=== PATIENT | male | born 1965 | race Caucasian/White ===

== ENCOUNTER 2016-05-20 18:47 | Emergency (ER) | payer OTHER ==
[2016-05-20 18:52] VITALS: RESP 18
[2016-05-20 18:56] LABS: Glucose,Whole Blood 195 mg/dL (75-99)
[2016-05-20] MEDS ORDERED: SODIUM CHLORIDE 0.9% 500 ML IV STA (18:56)
[2016-05-20] MEDS ORDERED: SODIUM CHLORIDE 0.9% 1,000 ML IV STA ×3 (18:56)
--- NOTE | 2016-05-20 18:56 | ED ---
General Adult HPI - General Chief complaint: Syncope Stated complaint: STEMI Time Seen by Provider: 05/20/16 18:50 Source: EMS, RN notes reviewed, old records reviewed Mode of arrival: EMS Limitations: no limitations - History of Present Illness Initial comments: This is a 51-year-old male the ER for evaluation of syncopal event. Patient states he did have single event today at work, it is not erythematous likable sludges, felt lightheaded dizzy and then passed out. Patient states he does feel diaphoretic and weak at this time but no chest pain no shortness of breath no abdominal pain no headaches. Patient does admit to drinking a few beers last night but nothing specific, no drug abuse. Patient denies any vomiting or diarrhea lately, no blood in stool eating appropriately. Patient states she does have history of aneurysm also admits to being under a lot of increased stress. Again patient denies any chest pain no shortness of breath no abdominal pain, does feel like he needs to go to the bathroom - Related Data Home Medications Medication Instructions Recorded Confirmed Aspirin EC [Ecotrin Low Dose] 81 mg PO DAILY 05/20/16 05/20/16 Allergies Allergy/AdvReac Type Severity Reaction Status Date / Time No Known Allergies Allergy Verified 05/20/16 19:08 Review of Systems ROS Statement: Those systems with pertinent positive or pertinent negative responses have been documented in the HPI. ROS Other: All systems not noted in ROS Statement are negative. 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 Absent: scleral icterus, conjunctival injection, periorbital swelling ENT exam: Present: normal exam, mucous membranes moist Neck exam: Present: normal inspection. Absent: tenderness, meningismus, lymphadenopathy Respiratory exam: Present: normal lung sounds bilaterally. Absent: respiratory distress, wheezes, rales, rhonchi, stridor Cardiovascular Exam: Present: normal rhythm, tachycardia, normal heart sounds. Absent: systolic murmur, diastolic murmur, rubs, gallop, clicks GI/Abdominal exam: Present: soft, normal bowel sounds. Absent: distended, tenderness, guarding, rebound, rigid Extremities exam: Present: normal inspection, full ROM, normal capillary refill. Absent: tenderness, pedal edema, joint swelling, calf tenderness Back exam: Present: normal inspection Neurological exam: Present: alert, oriented X3, CN II-XII intact Psychiatric exam: Present: normal affect, normal mood Skin exam: Present: warm, dry, intact, normal color. Absent: rash Course Vital Signs 05/20/16 05/20/16 05/20/16 18:50 18:52 18:57 Temperature 98.0 F Pulse Rate 103 H 104 H Respiratory 18 18 Rate Blood Pressure 78/50 83/54 92/63 O2 Sat by Pulse 97 97 Oximetry 05/20/16 05/20/16 05/20/16 19:09 19:11 19:28 Temperature Pulse Rate 103 H 102 H 86 Respiratory 18 18 18 Rate Blood Pressure 101/64 100/66 117/67 O2 Sat by Pulse 98 97 97 Oximetry 05/20/16 20:26 Temperature Pulse Rate 78 Respiratory 18 Rate Blood Pressure 122/81 O2 Sat by Pulse 97 Oximetry - Reevaluation(s) Reevaluation #1: 05/20/16 20:40 Patient remains alert and oriented, blood pressure is improving. EKG Findings - EKG Comments: EKG Findings:: EKG shows normal sinus rhythm rate of 100, CT 146, currently, QTC 464, patient does have anterior PQ waves could be suspicious for hyperacute T waves, no evidence of ST elevation. EKG shows unusual axis rate of well 5, CT 152, QRS 80, QTC 502 Procedures - Central Line Placement Right IJ Consent Obtained: verbal consent Time Out Performed: Yes Patient Placed on Monitor/Pulse Ox: Yes MD Prep: mask, gown, gloves Central Line Prep: Chlorhexidine scrub Local Anesthesia Used: Lidocaine 1% Ultrasound Used for Placement: Yes Central Line Lumen Inserted: triple Bloods Obtained for Lab: Yes Central Line Position: good blood return, all ports aspirated, flushed, capped, sutured in place with 3-0 nylon Dressing Applied: Tegaderm Post Procedure X-Ray: tip of catheter in good position Patient Tolerated Procedure: well Complications: none Medical Decision Making - Medical Decision Making 51 male ER for evaluation, patient brought in today for evaluation of syncopal event, patient does have 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 He she' ll be started with pro transfusion. Patient will be transferred [facility] under the care of vascular surgery. - Lab Data Result diagrams: 05/20/16 18:50 05/20/16 18:50 Lab Results 05/20/16 05/20/16 05/20/16 Range/Units 18:50 18:50 18:50 WBC 8.5 (3.8-10.6) k/uL RBC 4.22 L (4.30-5.90) m/uL Hgb 13.4 (13.0-17.5) gm/dL Hct 39.3 (39.0-53.0) % MCV 93.1 (80.0-100.0) fL MCH 31.6 (25.0-35.0) pg MCHC 34.0 (31.0-37.0) g/dL RDW 12.6 (11.5-15.5) % Plt Count 202 (150-450) k/uL Neutrophils % 51 % Lymphocytes % 36 % Monocytes % 6 % Eosinophils % 3 % Basophils % 1 % Neutrophils # 4.3 (1.3-7.7) k/uL Lymphocytes # 3.1 (1.0-4.8) k/uL Monocytes # 0.5 (0-1.0) k/uL Eosinophils # 0.2 (0-0.7) k/uL Basophils # 0.1 (0-0.2) k/uL PT (9.0-12.0) sec INR (<1.1) APTT (22.0-30.0) sec D-Dimer (<0.60) mg/L FEU Sodium 141 (137-145) mmol/L Potassium 3.0 L* (3.5-5.1) mmol/L Chloride 98 (98-107) mmol/L Carbon Dioxide 29 (22-30) mmol/L Anion Gap 14 mmol/L BUN 19 (9-20) mg/dL Creatinine 1.30 H (0.66-1.25) mg/dL Est GFR (MDRD) Af Amer >60 (>60 ml/min/1.73 sqM) Est GFR (MDRD) Non-Af 59 (>60 ml/min/1.73 sqM) Glucose 185 H (74-99) mg/dL POC Glucose (mg/dL) (75-99) mg/dL POC Glu [employer] Installer ID Calcium 10.0 (8.4-10.2) mg/dL Phosphorus 4.6 H (2.5-4.5) mg/dL Magnesium 2.2 (1.6-2.3) mg/dL Total Bilirubin 1.4 H (0.2-1.3) mg/dL AST 111 H (17-59) U/L ALT 130 H (21-72) U/L Alkaline Phosphatase 96 (38-126) U/L Total Creatine Kinase 233 H (55-170) U/L CK-MB (CK-2) 2.1 (0.0-2.4) ng/mL CK-MB (CK-2) Rel Index 0.9 Troponin I 0.080 H* (0.000-0.034) ng/mL Total Protein 6.4 (6.3-8.2) g/dL Albumin 3.7 (3.5-5.0) g/dL 05/20/16 05/20/16 Range/Units 18:50 18:54 WBC (3.8-10.6) k/uL RBC (4.30-5.90) m/uL Hgb (13.0-17.5) gm/dL Hct (39.0-53.0) % MCV (80.0-100.0) fL MCH (25.0-35.0) pg MCHC (31.0-37.0) g/dL RDW (11.5-15.5) % Plt Count (150-450) k/uL Neutrophils % % Lymphocytes % % Monocytes % % Eosinophils % % Basophils % % Neutrophils # (1.3-7.7) k/uL Lymphocytes # (1.0-4.8) k/uL Monocytes # (0-1.0) k/uL Eosinophils # (0-0.7) k/uL Basophils # (0-0.2) k/uL PT 10.8 (9.0-12.0) sec INR 1.1 (<1.1) APTT 19.8 L (22.0-30.0) sec D-Dimer 0.74 H (<0.60) mg/L FEU Sodium (137-145) mmol/L Potassium (3.5-5.1) mmol/L Chloride (98-107) mmol/L Carbon Dioxide (22-30) mmol/L Anion Gap mmol/L BUN (9-20) mg/dL Creatinine (0.66-1.25) mg/dL Est GFR (MDRD) Af Amer (>60 ml/min/1.73 sqM) Est GFR (MDRD) Non-Af (>60 ml/min/1.73 sqM) Glucose (74-99) mg/dL POC Glucose (mg/dL) 195 H (75-99) mg/dL POC Glu [employer] Installer ID [place], Judy Calcium (8.4-10.2) mg/dL Phosphorus (2.5-4.5) mg/dL Magnesium (1.6-2.3) mg/dL Total Bilirubin (0.2-1.3) mg/dL AST (17-59) U/L ALT (21-72) U/L Alkaline Phosphatase (38-126) U/L Total Creatine Kinase (55-170) U/L CK-MB (CK-2) (0.0-2.4) ng/mL CK-MB (CK-2) Rel Index Troponin I (0.000-0.034) ng/mL Total Protein (6.3-8.2) g/dL Albumin (3.5-5.0) g/dL - Radiology Data Radiology results: report reviewed (Chest x-ray negative for acute disease, CK negative for PE, CT head and pelvis positive for ruptured AAA aneurysm), image reviewed Critical Care Time Critical Care Time: Yes Total Critical Care Time: 31 Disposition Clinical Impression: Syncope, Ruptured aortic aneurysm Disposition: OTHER INSTITUTION NOT DEFINED Condition: Critical Referrals: Lazara Lauren MD [Primary Care Provider] - 1-2 days - Out of Hospital Transfer - Req. Specs Out of Hospital Transfer - Requested Specifics: Other Emergency Center ([facility]
[2016-05-20 19:07] LABS: Basophils # (A) 0.1 k/uL (0-0.2); Basophils % (A) 1 %; CH 32.6; CHCM 35.1; Eosinophils # (A) 0.2 k/uL (0-0.7); Eosinophils % (A) 3 %; HCT 39.3 % (39.0-53.0); HDW 2.87; HGB 13.4 gm/dL (13.0-17.5); Luc # (Auto) 0.34; Luc % (Auto) 4; Lymphocytes # (A) 3.1 k/uL (1.0-4.8); Lymphocytes % (A) 36 %; MCH 31.6 pg (25.0-35.0); MCV 93.1 fL (80.0-100.0); Mean Platelet Volume 7.1; Monocytes # (A) 0.5 k/uL (0-1.0); Monocytes % (A) 6 %; Neutrophils # (A) 4.3 k/uL (1.3-7.7); Neutrophils % (A) 51 %; RBC 4.22 m/uL (4.30-5.90); RDW 12.6 % (11.5-15.5); WBC 8.5 k/uL (3.8-10.6); WBC (Perox) 8.99
[2016-05-20 19:19] LABS: ALT 130 U/L (21-72); AST 111 U/L (17-59); Alkaline Phosphatase 96 U/L (38-126); Anion Gap 14 mmol/L; Blood Urea Nitrogen 19 mg/dL (9-20); Carbon Dioxide 29 mmol/L (22-30); Chloride 98 mmol/L (98-107); Glucose 185 mg/dL (74-99); Magnesium 2.2 mg/dL (1.6-2.3); Non-African American GFR(MDRD) 59 (>60 ml/min/1.73 sqM); Phosphorous 4.6 mg/dL (2.5-4.5); Sodium 141 mmol/L (137-145); Total Bilirubin 1.4 mg/dL (0.2-1.3); Total Protein 6.4 g/dL (6.3-8.2)
[2016-05-20 19:24] LABS: INR 1.1 (<1.1); Prothrombin Time 10.8 sec (9.0-12.0)
--- NOTE | 2016-05-20 19:25 | XR ---
EXAMINATION TYPE: XR chest 1V portable DATE OF EXAM: 05/20/2016 7:03 PM COMPARISON: 08/31/2013 HISTORY: Syncope TECHNIQUE: Single frontal view of the chest is obtained. FINDINGS: Heart and mediastinum are normal. Lungs are clear. Diaphragm is normal. There are chest le ads. IMPRESSION: No active cardiopulmonary disease. No change.
[2016-05-20 19:30] LABS: Partial Thromboplastin Time 19.8 sec (22.0-30.0)
[2016-05-20 19:40] LABS: Creatine Kinase MB 2.1 ng/mL (0.0-2.4)
[2016-05-20] MEDS ORDERED: RX INFO: IV CONTRAST WAS GIVEN 1 EACH MISC MISCELLANE PRN (19:41)
[2016-05-20] MEDS ORDERED: POTASSIUM BICARB-CITRIC ACID 25 MEQ TABLET.EFF PO STA (19:41)
[2016-05-20 19:48] LABS: Troponin I 0.08 ng/mL (0.000-0.034)
--- NOTE | 2016-05-20 20:00 | CT ---
EXAMINATION TYPE: CT brain wo con DATE OF EXAM: 05/20/2016 7:33 PM COMPARISON: 08/31/2013 HISTORY: syncopal episode today. Weakness, dizziness and HTN CT DLP: 1239 mGycm Automated exposure control for dose reduction was used. FINDINGS: There is a 2 cm area of hypodensity in the right posterior frontal lobe extending to the frontal horn of the right lateral ventricle consistent with encephalomalacia. There is no mass effect. There is n o midline shift. There is metal artifact from surgical clip at the third ventricle. There is no hydro cephalus. There is no evidence of intracranial hemorrhage. There is small subtle white matter hypoden sity in the left posterior frontal lobe. IMPRESSION: There is some encephalomalacia in the right posterior frontal lobe that appears new compared to the o ld CT scan. There is apparent aneurysm clip at the base of the third ventricle. There is a 1 cm area of subtle white matter hypodensity in the left posterior frontal lobe that appears new compared to ol d exam and could be a more acute abnormality. This could be more acute ischemia.
--- NOTE | 2016-05-20 20:35 | CT ---
EXAMINATION TYPE: CT angio chest DATE OF EXAM: 05/20/2016 8:25 PM COMPARISON: NONE HISTORY: Syncopal episode today with generalized discomfort. CT DLP: 1990 mGycm Automated exposure control for dose reduction was used. CONTRAST: CTA scan of the thorax is performed with IV Contrast, patient injected with 100 mL of Omnipaque 350, pulmonary embolism protocol. . FINDINGS: There are 3-D postprocess images. Heart is enlarged. The lungs are clear of consolidation. There is no pleural effusion. There is no pe ricardial effusion. Thoracic aorta is intact. I see no filling defect in the pulmonary arteries. Ther e is no mediastinal adenopathy. There are no hilar masses. IMPRESSION: NO EVIDENCE OF PULMONARY EMBOLISM. MILD CARDIOMEGALY.
--- NOTE | 2016-05-20 20:39 | CT ---
EXAMINATION TYPE: CT abdomen pelvis w con DATE OF EXAM: 05/20/2016 8:25 PM COMPARISON: NONE HISTORY: Syncopal episode today with generalized discomfort. CT DLP: 1990 mGycm Automated exposure control for dose reduction was used. TECHNIQUE: Helical acquisition of images was performed from the lung bases through the pelvis. CONTRAST: Performed without Oral Contrast and with IV Contrast, patient injected with 100 mL of Omnipaque 350. FINDINGS: Lung bases are clear of consolidation. There is no pleural effusion. Heart is enlarged. Liver spleen pancreas gallbladder appear normal. Bile ducts are not dilated. There is abnormal increa sed density around the left kidney and left psoas muscle consistent with a large retroperitoneal hemo rrhage. There is also some contrast extravasation on the left lateral aspect of the lower abdominal a rosana. This measures 1 cm. There is a fusiform lower abdominal aortic aneurysm. This measures up to 5 cm in diameter. The retroperitoneal hemorrhage extends from the left renal artery down to the iliac c rest and measures 13 cm in length. There is anterior displacement of the left kidney. The kidneys ignacia w satisfactory contrast opacification. There is no hydronephrosis. There is no retroperitoneal adenop athy. There is no ascites. Bladder distends smoothly. The bony structures are intact. There is athero sclerotic calcification in the abdominal aorta and its branches. IMPRESSION: THERE IS A 5 CM LOWER ABDOMINAL AORTIC ANEURYSM. THERE IS EVIDENCE OF ACTIVE BLEEDING WITH CONTRAST E XTRAVASATION ON THE LEFT LATERAL WALL. THERE IS A LARGE LEFT SIDED RETROPERITONEAL HEMATOMA THAT MAUDE URES AT LEAST 13 CM IN LENGTH. THERE IS DISPLACEMENT OF THE LEFT KIDNEY. THESE FINDINGS WERE GIVEN TO THE EMERGENCY ROOM DR. BEDOYA, AT 8:30 PM.
[2016-05-20 21:22] VITALS: BP 137/88; PULSE 81; TEMP 97.8
[2016-05-20] MEDS: POTASSIUM CHLORIDE 10 MEQ, LIDOCAINE 2% INJ 10 MG in SODIUM CHLORIDE 0.9% 100 ML IVPB SCH ×2 (21:30→21:33)
--- NOTE | 2016-05-20 21:37 | XR ---
EXAMINATION TYPE: XR chest 1V portable DATE OF EXAM: 05/20/2016 9:30 PM COMPARISON: Today HISTORY: Line placement TECHNIQUE: Single frontal view of the chest is obtained. FINDINGS: There is a right jugular catheter with the tip in the right atrium. There is no sign of pn eumothorax. Lungs are clear. There is no heart failure. Heart size is probably normal. There are ches t leads. IMPRESSION: No active cardiopulmonary disease. Catheter appears in good position.
== END 2016-05-20 21:30 | disposition other institution (70) ==
LOC: EC 18:47
DX: I71.3 Abdominal aortic aneurysm, ruptured (principal); R55 Syncope and collapse; K66.1 Hemoperitoneum; I51.7 Cardiomegaly; G93.89 Other specified disorders of brain; R61 Generalized hyperhidrosis; F17.200 Nicotine dependence, unspecified, uncomplicated; Z79.82 Long term (current) use of aspirin
CPT/HCPCS: 99291 ×2; 36556 ×2; 96374 ×2; 96361 ×2; 36415; 86900; 86901; 85379; 80053; 82550; 82553; 83735; 84100; 84484; 85025; 85610; 85730; 86850; 86920; 71010; 70450; 71275; 74177; P9016; J2001; Q9967; J3480; 93005

== ENCOUNTER 2019-01-29 17:53 | Inpatient (IN) | payer OTHER ==
[2019-01-29] MEDS ORDERED: DIPH,PERTUS(ACELL)TETVAC-LF 0.5 ML VIAL IM ONE (18:42)
--- NOTE | 2019-01-29 18:45 | ED ---
General Adult HPI <Lamberto Perkins - Last Filed: 01/29/19 19:54> - General Source: patient Mode of arrival: ambulatory Limitations: no limitations <Og Ugarte - Last Filed: 01/29/19 20:01> - General Chief complaint: Extremity Injury, Upper Stated complaint: DOG BITE LEFT HAND Time Seen by Provider: 01/29/19 18:18 - History of Present Illness Initial comments: Patient is a 53-year-old male presenting to emergency department with a chief complaint of a dog bite. Patient reports about a week ago he was picking up a dogfight when he was bitten on the posterior aspect of the right hand. Patient is also complaining of a bite wound on the right foot. Patient reports he has always had stasis dermatitis in the right lower leg. Patient reports he gradually developed swelling and pain. Patient also reports attempted to push the dog and suffered an injury to the third MCP joint. Patient reports limited range of motion in her right hand. Patient does report some drainage from the site of the dog bite. Patient denies any fevers or chills. Patient denies taking medication to alleviate symptoms. Patient doesn't know his tetanus status. (Og Ugarte) - Related Data Home Medications Medication Instructions Recorded Confirmed Aspirin EC [Ecotrin Low Dose] 81 mg PO DAILY 05/20/16 05/20/16 Allergies Allergy/AdvReac Type Severity Reaction Status Date / Time No Known Allergies Allergy Verified 05/20/16 19:08 Review of Systems ROS Other: All systems not noted in ROS Statement are negative. <Lamberto Perkins - Last Filed: 01/29/19 19:54> ROS Other: All systems not noted in ROS Statement are negative. <Og Ugarte - Last Filed: 01/29/19 20:01> ROS Statement: Those systems with pertinent positive or pertinent negative responses have been documented in the HPI. Past Medical History Past Medical History: Hyperlipidemia, Hypertension Additional Past Medical History / Comment(s): back problems, brain aneurism that ruptured History of Any Multi-Drug Resistant Organisms: None Reported Past Surgical History: No Surgical Hx Reported Additional Past Surgical History / Comment(s): ruptured brain aneurism repair Past Psychological History: No Psychological Hx Reported Smoking Status: Current every day smoker Past Alcohol Use History: Occasional Past Drug Use History: Marijuana - Past Family History Mother Family Medical History: Diabetes Mellitus <Og Ugarte - Last Filed: 01/29/19 20:01> General Exam Limitations: no limitations General appearance: alert, in no apparent distress Head exam: Present: atraumatic, normocephalic, normal inspection Eye exam: Present: normal appearance Pupils: Present: normal accommodation ENT exam: Present: normal exam, mucous membranes moist, normal external ear exam Neck exam: Present: normal inspection, full ROM Respiratory exam: Present: normal lung sounds bilaterally Cardiovascular Exam: Present: regular rate, normal rhythm, normal heart sounds Extremities exam: Present: tenderness (Tenderness in the left hand.), normal capillary refill, other (+2 ulnar radial pulses bilaterally.). Absent: normal inspection (Swelling, erythema and discharge on the posterior aspect of left hand.), full ROM (Limited range of motion due to pain.) Back exam: Present: normal inspection, full ROM Neurological exam: Present: alert, oriented X3 Psychiatric exam: Present: normal affect, normal mood Skin exam: Present: warm, intact, normal color <Og Ugarte - Last Filed: 01/29/19 20:01> Course Vital Signs 01/29/19 18:11 Temperature 97.7 F Pulse Rate 94 Respiratory 18 Rate Blood Pressure 238/130 O2 Sat by Pulse 97 Oximetry Medical Decision Making <Lamberto Perkins - Last Filed: 01/29/19 19:54> - Medical Decision Making Decision making; this is a 53-year-old male reports she was breaking up a dogfight approximately one week ago. This resulted in injury and infection to his dominant left hand and right foot. X-ray was done of the left hand did not show any evidence of foreign body no fractures per a Dr. Hancock. The patient also presents with elevated blood pressure of 200 1:30. This was treated with hydralazine. Patient reports he ran out of his antihypertensive medications. The patient was started on Unasyn and emergency room. Case discussed with Dr. Means on-call for Dr. Bueno. Patient will be admitted to his service with consultation from hand surgeon. Unasyn to continue, Vasotec to be used when necessary to control blood pressure. Dr. Perkins (Lamberto Perkins) Disposition <Lamberto Perkins - Last Filed: 01/29/19 19:54> Is patient prescribed a controlled substance at d/c from ED?: No Time of Disposition: 20:01 <Og Ugarte - Last Filed: 01/29/19 20:01> Clinical Impression: Dog bite of right foot, Dog bite of right hand Disposition: ADMITTED IP TO THIS HOSP Condition: Stable Additional Instructions: Patient will be admitted Referrals: Bowen Bueno Jr, [Primary Care Provider] - 1-2 days
[2019-01-29] MEDS ORDERED: cloNIDine HCL 0.2 MG TAB PO STA (18:57)
[2019-01-29] MEDS ORDERED: HYDROcodone/APAP 5-325MG 1 EACH TAB PO STA (18:57)
--- NOTE | 2019-01-29 19:05 | XR ---
EXAMINATION TYPE: XR hand complete LT DATE OF EXAM: 01/29/2019 COMPARISON: NONE HISTORY: Dogbite. Pain and swelling. TECHNIQUE: 3 views FINDINGS: There is soft tissue swelling around the hand. The metacarpals are intact. Joint spaces are normal. IMPRESSION: Significant posterior soft tissue swelling. No fracture seen. No evidence of a foreign karlene dy.
[2019-01-29] MEDS ORDERED: RABIES IMMUNE GLOB 300 UNIT/ML 1 ML VIAL IM ONE (19:07)
[2019-01-29] MEDS ORDERED: hydrALAZINE HCL 20 MG/ML 1 ML VIAL IVP STA (19:07)
[2019-01-29] MEDS ORDERED: RABIES VACCINE (PCEC) 2.5 UNIT KIT IM ONE (19:07)
[2019-01-29] MEDS ORDERED: AMPICILLIN-SULBACTAM 3 GM in SODIUM CHLORIDE 0.9% 100 ML IVPB STA (19:11)
[2019-01-29] MEDS ORDERED: RABIES IMMUNE GLOB 300 UNIT/ML 5 ML VIAL IM ONE (19:15)
[2019-01-29] MEDS ORDERED: IBUPROFEN 400 MG TAB PO PRN (19:48)
[2019-01-29] MEDS ORDERED: ACETAMINOPHEN TAB 325 MG TAB PO PRN (19:48)
[2019-01-29] MEDS ORDERED: NALOXONE 0.4 MG/ML 1 ML VIAL IV PRN (19:48)
[2019-01-29 20:49] LABS: Basophils % (A) 0 %; Eosinophils # (A) 0.1 k/uL (0-0.7); Eosinophils % (A) 2 %; HCT 42.1 % (39.0-53.0); HGB 14.1 gm/dL (13.0-17.5); Lymphocytes # (A) 1.2 k/uL (1.0-4.8); Lymphocytes % (A) 15 %; MCH 31.6 pg (25.0-35.0); MCHC 33.5 g/dL (31.0-37.0); MCV 94.4 fL (80.0-100.0); Mean Platelet Volume 6.8; Monocytes # (A) 0.6 k/uL (0-1.0); Monocytes % (A) 7 %; Neutrophils # (A) 6.2 k/uL (1.3-7.7); Neutrophils % (A) 74 %; Platelet Count 193 k/uL (150-450); RBC 4.46 m/uL (4.30-5.90); RDW 12.5 % (11.5-15.5); WBC 8.3 k/uL (3.8-10.6)
[2019-01-29 20:54] LABS: ALT 69 U/L (21-72); AST 55 U/L (17-59); African American GFR (CKD) >90 (>60 ml/min/1.73 sqM); Albumin 3.7 g/dL (3.5-5.0); Alkaline Phosphatase 91 U/L (38-126); Anion Gap 8 mmol/L; Blood Urea Nitrogen 17 mg/dL (9-20); Calcium 11.2 mg/dL (8.4-10.2); Carbon Dioxide 33 mmol/L (22-30); Chloride 96 mmol/L (98-107); Glucose 109 mg/dL (74-99); Potassium 2.9 mmol/L (3.5-5.1); Sodium 137 mmol/L (137-145); Total Bilirubin 1.1 mg/dL (0.2-1.3); Total Protein 6.9 g/dL (6.3-8.2)
[2019-01-29] MEDS: SODIUM CHLORIDE 0.9% 1,000 ML IV SCH (21:06)
[2019-01-29] MEDS: POTASSIUM CHLORIDE ER 20 MEQ TAB.ER PO SCH (23:24)
[2019-01-29] MEDS: HYDROcodone/APAP 5-325MG 1 EACH TAB PO PRN (23:28)
[2019-01-30] MEDS ORDERED: ENALAPRILAT 1.25 MG/ML 1 ML VIAL IVP PRN
[2019-01-30] MEDS ORDERED: ENALAPRILAT 1.25 MG/ML 1 ML VIAL IVP SCH
[2019-01-30] MEDS: POTASSIUM CHLORIDE ER 20 MEQ TAB.ER PO SCH (09:01)
--- NOTE | 2019-01-30 11:07 | P.CNOR ---
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, groin aneurism History of Any Multi-Drug Resistant Organisms: None Reported Past Surgical History: No Surgical Hx Reported Additional Past Surgical History / Comment(s): ruptured brain and groin aneurism repair Past Anesthesia/Blood Transfusion Reactions: No Reported Reaction Past Psychological History: No Psychological Hx Reported Smoking Status: Current every day smoker Past Alcohol Use History: Occasional Past Drug Use History: Marijuana Additional Drug Use History / Comment(s): pt states smokes marijuana once a week - Past Family History Mother Family Medical History: Diabetes Mellitus Medications and Allergies Home Medications Medication Instructions Recorded Confirmed Type Aspirin EC [Ecotrin Low Dose] 81 mg PO DAILY 05/20/16 01/29/19 History Bp Med(Unknown) 1 tab PO TID 01/29/19 01/29/19 History Allergies Allergy/AdvReac Type Severity Reaction Status Date / Time No Known Allergies Allergy Verified 01/29/19 20:30 Physical Examination The patient's well developed well-nourished male of endomorphic habitus. He appears to be in no acute distress. Afebrile with stable vital signs Left dorsal hand 1 x 1 cm wound over the third and fourth metacarpal shafts with erythema/moderate swelling/mild drainage Limited left digital range of motion Light touch intact left digits Fires flexor and extensor tendons left digits Nontender left wrist and elbow Moderate right dorsal forefoot swelling/erythema 1 x 1 cm dorsal wound right forefoot over the fourth and fifth metatarsal neck region Nontender right mid and hindfoot Flexes and extends right toes X-rays left hand shows dorsal soft tissue swelling, however no radiopaque foreign body or fracture Results - Labs Labs: Abnormal Lab Results - Last 24 Hours (Table) 01/29/19 Range/Units 19:45 Potassium 2.9 L (3.5-5.1) mmol/L Chloride 96 L (98-107) mmol/L Carbon Dioxide 33 H (22-30) mmol/L Glucose 109 H (74-99) mg/dL Calcium 11.2 H (8.4-10.2) mg/dL H & H 01/29/19 Range/Units 19:45 Hgb 14.1 (13.0-17.5) gm/dL Hct 42.1 (39.0-53.0) % Result Diagrams: 01/29/19 19:45 01/29/19 19:45 - Diagnostic results Wrist/Hand x-ray: report reviewed (Left hand dorsal soft tissue swelling) Assessment and Plan Assessment: Dog bite with cellulitis/possible abscess left dorsal hand and right dorsal forefoot Plan: We will plan to proceed with incision and drainage with irrigation and debridement of his left hand and right foot today. We will consult infectious disease for appropriate antibiotic treatment. Time with Patient: Greater than 30
--- NOTE | 2019-01-30 11:48 | XR ---
EXAMINATION TYPE: XR foot complete RT , 3 VIEWS DATE OF EXAM ORDERED: 01/30/2019 HISTORY: Dog bites right foot with possible foreign body. COMPARISON: None. FINDINGS: No fracture, dislocation or radiopaque foreign body is seen. There is an unusual appearance to the distal aspect of the fourth digit metatarsals. There appears to be some erosive change. There is some fragmentation adjacent to the distal aspect of the fifth metat arsal. IMPRESSION: 1. NO RADIOPAQUE FOREIGN BODY. 2. EROSIVE CHANGES INVOLVING THE DISTAL RIGHT FOURTH AND FIFTH METATARSALS.
--- NOTE | 2019-01-30 13:08 | P.HPIM ---
History of Present Illness H&P Date: 01/30/19 Chief Complaint: dog Bite cellulitis This is a pleasant 53-year-old white male patient of my partner. He reports that 8 days ago, on Thursday, January 22, his dog and his friend's dog began fighting and in breaking up he was bitten on the right foot and left hand. These puncture wounds since worsened with increased redness pain and swelling. He had not followed up at all and our office until his symptoms became severe enough that he came to the emergency room yesterday. He is status post 1 dose of Unasyn. Orthopedic surgery consult is pending. He denies any chest pains, pressures, shortness of breath, nausea or vomiting. He only complains of pain in his bite sites. 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, groin aneurism History of Any Multi-Drug Resistant Organisms: None Reported Past Surgical History: No Surgical Hx Reported Additional Past Surgical History / Comment(s): ruptured brain and groin aneurism repair Past Anesthesia/Blood Transfusion Reactions: No Reported Reaction Past Psychological History: No Psychological Hx Reported Smoking Status: Current every day smoker Past Alcohol Use History: Occasional Past Drug Use History: Marijuana Additional Drug Use History / Comment(s): pt states smokes marijuana once a week - Past Family History Mother Family Medical History: Diabetes Mellitus Medications and Allergies Home Medications Medication Instructions Recorded Confirmed Type Aspirin EC [Ecotrin Low Dose] 81 mg PO DAILY 05/20/16 01/29/19 History Bp Med(Unknown) 1 tab PO TID 01/29/19 01/29/19 History Allergies Allergy/AdvReac Type Severity Reaction Status Date / Time No Known Allergies Allergy Verified 01/29/19 20:30 Physical Exam Vitals: Vital Signs Temp Pulse Pulse Resp BP BP Pulse Ox 01/30/19 11:28 98.1 F 81 20 183/92 97 01/30/19 05:06 98.8 F 83 20 154/97 98 01/29/19 23:56 153/78 01/29/19 23:05 98.1 F 88 16 192/109 98 01/29/19 20:58 98.3 F 87 18 172/96 99 01/29/19 18:11 97.7 F 94 18 238/130 97 Intake and Output 01/29/19 01/30/19 01/30/19 22:59 06:59 14:59 Intake Total 800 Output Total 550 Balance 800 -550 Intake: Intake, IV Titration 800 Amount Sodium Chloride 0.9% 1, 800 000 ml @ 100 mls/hr IV . Q10H [facility] Rx#:[id number] Output: Urine 550 Other: Voiding Method Toilet # Voids 2 Weight 113.398 kg GENERAL: Somnolent, well-nourished and in no acute distress. He is somewhat obese HEAD: Atraumatic, normocephalic. EYES: Pupils equal round and reactive to light, extraocular movements intact, sclera anicteric, conjunctiva are normal. ENT:nares patent, oropharynx clear without exudates. Moist mucous membranes. NECK: Normal range of motion, supple without lymphadenopathy or JVD, no thyromegaly LUNGS: Breath sounds clear to auscultation bilaterally and equal. No wheezes rales or rhonchi. HEART: Regular rate and rhythm without murmurs, rubs or gallops.S1S2 Normal ABDOMEN: Soft, nontender, normoactive bowel sounds. No guarding, no rebound. No masses appreciated. EXTREMITIES: There is redness to his left hand and right foot with the crusts noted over the puncture wounds. NEUROLOGICAL: Cranial nerves II through XII grossly intact. Normal speech, no rmal gait. PSYCH: Normal mood, normal affect. SKIN: Warm, Dry, normal turgor, no rashes or lesions noted. Results CBC & Chem 7: 01/29/19 19:45 01/29/19 19:45 Labs: Abnormal Lab Results - Last 24 Hours (Table) 01/29/19 Range/Units 19:45 Potassium 2.9 L (3.5-5.1) mmol/L Chloride 96 L (98-107) mmol/L Carbon Dioxide 33 H (22-30) mmol/L Glucose 109 H (74-99) mg/dL Calcium 11.2 H (8.4-10.2) mg/dL Thrombosis Risk Factor Assmnt - DVT/VTE Prophylaxis DVT/VTE Prophylaxis: Low risk, early ambulation encouraged - Choose All That Apply Any of the Below Risk Factors Present?: Yes Each Factor Represents 1 point: Age 41-60 years, Obesity (BMI >25) Thrombosis Risk Factor Assessment Total Risk Factor Score: 2 Thrombosis Risk Factor Assessment Level: Low Risk Assessment and Plan (1) Dog bite of left hand Current Visit: Yes Status: Acute Code(s): S61.452A - OPEN BITE OF LEFT HAND, INITIAL ENCOUNTER; W54.0XXA - BITTEN BY DOG, INITIAL ENCOUNTER SNOMED Code(s): 220511637 (2) Cellulitis and abscess of foot Current Visit: Yes Status: Acute Code(s): L03.119 - CELLULITIS OF UNSPECIFIED PART OF LIMB; L02.619 - CUTANEOUS ABSCESS OF UNSPECIFIED FOOT SNOMED Code(s): 275537693 (3) Cellulitis and abscess of hand Current Visit: Yes Status: Acute Code(s): L03.119 - CELLULITIS OF UNSPECIFIED PART OF LIMB; L02.519 - CUTANEOUS ABSCESS OF UNSPECIFIED HAND SN OMED Code(s): 624768933 (4) Essential (primary) hypertension Current Visit: Yes Status: Acute Code(s): I10 - ESSENTIAL (PRIMARY) HYPERTENSION SNOMED Code(s): 93597718 (5) Personal history of arterial aneurysm Current Visit: Yes Status: Acute Code(s): Z86.79 - PERSONAL HISTORY OF OTHER DISEASES OF THE CIRCULATORY SYSTEM SNOMED Code(s): 838874942 (6) Dog bite of right foot Current Visit: Yes Status: Acute Code(s): S91.351A - OPEN BITE, RIGHT FOOT, INITIAL ENCOUNTER; W54.0XXA - BITTEN BY DOG, INITIAL ENCOUNTER SNOMED Code(s): 639197971 (7) Hypertension Current Visit: No Status: Acute Code(s): I10 - ESSENTIAL (PRIMARY) HYPERTENSION SNOMED Code(s): 31813569 Plan: I will add lisinopril at 20 mg daily for blood pressure, hydralazine 10 mg 3 times a day await orthopedic consult, add Rocephin 1 g every 12 hours for dog bite cellulitis coverage, weight on his upcoming cultures, blood cultures if not done in the ER, repeat labs in a.m., infectious disease consult if needed, we'll reevaluate him in the next 24 hours.
[2019-01-30] MEDS: hydrALAZINE HCL 10 MG TAB PO SCH ×3 (13:25→21:12)
[2019-01-30] MEDS: LISINOPRIL 20 MG TAB PO SCH (13:25)
[2019-01-30] MEDS: FAMOTIDINE 20 MG TAB PO SCH (13:25)
[2019-01-30 14:31] LABS: African American GFR (CKD) >90 (>60 ml/min/1.73 sqM); Anion Gap 7 mmol/L; Blood Urea Nitrogen 14 mg/dL (9-20); Calcium 10.5 mg/dL (8.4-10.2); Carbon Dioxide 29 mmol/L (22-30); Chloride 101 mmol/L (98-107); Glucose 126 mg/dL (74-99); Sodium 137 mmol/L (137-145)
[2019-01-30] MEDS ORDERED: LIDOCAINE 1% INJ 10MG/ML (20 ML MDV) ONE (15:44)
[2019-01-30] MEDS ORDERED: fentaNYL (PF) 50 MCG/ML 2 ML AMP ONE (15:44)
[2019-01-30] MEDS ORDERED: IV FLUID CONTINUATION 1,000 ML IV ONE (15:44)
[2019-01-30] MEDS ORDERED: PROPOFOL 10 MG/ML 20 ML VIAL IV ONE (15:44)
[2019-01-30] MEDS ORDERED: LACTATED RINGERS 1,000 ML IV ONE (16:20)
--- NOTE | 2019-01-30 16:40 | P.OP ---
Date of Procedure: 01/30/19 Preoperative Diagnosis: Left dorsal hand abscess status post dog bite Right dorsal foot abscess status post dog bite Postoperative Diagnosis: Same Procedure(s) Performed: Incision and drainage left dorsal hand wound/abscess with irrigation and debridement Incision and drainage right dorsal foot wound/abscess with irrigation and debridement Anesthesia: MAI Surgeon: Mitchell Topete Legal Associate #1: Joshua Carrera Pathology: other (Deep cultures left hand/right foot) Condition: stable Disposition: PACU Indications for Procedure: The patient's a 53-year-old male who presents after sustaining dog bite injuries to his left hand and right foot approximately one week ago with progressive swelling/redness/drainage. Clinically he was noted to have abscesses involving his left dorsal hand and right dorsal foot. A discussion of the risks and benefits of operative intervention was made with patient. He opted proceed with surgery. Operative risks to include persistence of infection and need for subsequent procedures was discussed. Informed consent was obtained. Operative Findings: As below Description of Procedure: The patient was brought to the operating room, and after induction of general anesthesia the left hand and right foot were prepped and draped in normal fashion. The tourniquet was inflated to 250 mmHg. The left dorsal hand wound measured approximately 2.5 x 1.5 cm over the dorsum of the hand over the third and fourth metacarpals. Purulence was expressed. This was then explored. The junctura between the index and ring fingers was damaged however the extensor tendons appeared intact. Deep cultures were obtained. The wound was copiously irrigated with normal saline. The wound edges were sharply debrided with a scalpel down to the level of the tendon sheath. The skin was loosely reapproximated with simple 3-0 nylon sutures. Attention was then paid towards the right foot. A 1.5 x 1 cm wound was noted along the dorsum of the lateral forefoot over the fourth and fifth the tarsal phalangeal joint. The wound was explored. Purulent was expressed. This did not appear to violate the metatarsophalangeal joints. The extensor tendons appeared intact. Deep cultures were obtained. The wound edges were sharply debrided with a scalpel down to the tendon sheath. The wound was copiously irrigated with normal saline. The skin was loosely reapproximated simple 3-0 nylon sutures. A froilan rile dressing was applied. The tourniquets were deflated with less than 30 minutes total tourniquet time. The patient was awoken from general anesthesia and transferred to the recovery room in good condition. Blood loss estimated at 20 mL. No complications were incurred. Sponge and needle counts were correct at the end the case.
[2019-01-30] MEDS ORDERED: hydrALAZINE HCL 20 MG/ML 1 ML VIAL IVP ONE (17:02)
[2019-01-30] MEDS: HYDROmorphone 1 MG/ML 1 ML SYRINGE IVP ONE ×2 (17:05→17:16)
[2019-01-30] MEDS: AMPICILLIN-SULBACTAM 3 GM in SODIUM CHLORIDE 0.9% 100 ML IVPB SCH ×2 (17:34→23:36)
[2019-01-30] MEDS: NICOTINE 21MG/24HR PATCH TRANSDERM SCH (17:35)
[2019-01-30] MEDS: SODIUM CHLORIDE 0.9% 1,000 ML IV SCH ×2 (17:35→20:15)
[2019-01-30] MEDS: MORPHINE SULFATE 4 MG/ML SYRINGE IV PRN ×2 (19:22→23:33)
--- NOTE | 2019-01-30 21:03 | P.CONS ---
History of Present Illness - Reason for Consult Consult date: 01/30/19 - Chief Complaint Dogbite - History of Present Illness 53-year-old male who relates that his pet dog kind to a dog fight with a neighbor's dog. He then attempted to separate the animals and ended up with a bite on his left hand, which is his dominant hand, as well as an injury to his r ight foot that occurred during the event. He does not believe the foot was bitten but was likely injured by dog nails. The patient worsened over several days and eventually presented to the emergency center last night evidence of fever increasing pain to the left hand and foot such that he is having difficulty utilizing his dominant hand. At the time of presentation was evidence of gino infection to both the hand and the foot and constantly orthopedic consults were requested. He will be going to the operating room in the next short period of time for the incision and drainage of the significant wounds and infection. Emergency room did give tetanus immunoglobulin in the first tetanus vaccine. The patient is having significant pain and expect this will improve with the surgical debridement Tetanus vaccine was very updated Review of Systems HEENT:Denies headache or acute visual change. Denies sinus or mouth discomforts. Denies neck stiffness or pain. Denies significant oral cavity pain. Denies difficulty on swallowing. Lungs: Denies significant shortness of breath, or new sputum production, no hemoptysis. Is an active smoker and has some cough at times Cardiovascular: Denies significant shortness of breath, chest pain, chest wall pain, orthopnea, dyspnea on exertion, syncope Gastrointestinal:Denies nausea, vomiting, diarrhea, constipation, hematemesis, melena, hematochezia. No no significant change of bowel habit noticed. Musculoskeletal: As per the HPI stomach and pain to the left hand and right foot, his chronic back pain. Skin: Denies new rash or lesions. No new ulcers or wounds are related.. Neuro: Denies headache or visual change. Denies any new onset weakness or difficulty with ambulation. Denies falls or seizures. 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 He relates apparently the animal that attacked him has been put down. No experience. No international travel. Did not relate to significant alcohol use, occasional marijuana. Smoking Status: Current every day smoker Past Alcohol Use History: Occasional Past Drug Use History: Marijuana Additional Drug Use History / Comment(s): pt states smokes marijuana once a week - Past Family History Mother Family Medical History: Diabetes Mellitus Medications and Allergies Home Medications and Allergies Comment(s): Current Medications Acetaminophen (Tylenol Tab) 650 mg PO Q6HR PRN PRN Reason: Mild Pain or Fever > 100.5 Hydrocodone Bitart/Acetaminophen (Reva 5-325) 1 each PO Q4HR PRN PRN Reason: Moderate Pain Last Admin: 01/29/19 23:28 Dose: 1 each Documented by: Famotidine (Pepcid) 20 mg PO DAILY [facility] Last Admin: 01/30/19 13:25 Dose: 20 mg Documented by: Hydralazine HCl (Apresoline) 10 mg PO QID [facility] Last Admin: 01/30/19 17:24 Dose: Not Given Documented by: Sodium Chloride (Saline 0.9%) 1,000 mls @ 100 mls/hr IV .Q10H [facility] Last Admin: 01/30/19 20:15 Dose: 100 mls/hr Documented by: Ampicillin Sodium/Sulbactam (Sodium 3 gm/ Sodium Chloride) 100 mls @ 200 mls/hr IVPB Q8HR [facility] Last Admin: 01/30/19 17:34 Dose: 200 mls/hr Documented by: Ibuprofen (Motrin) 400 mg PO Q6HR PRN PRN Reason: Mild Pain or Fever > 100.5 Lisinopril (Zestril) 20 mg PO DAILY [facility] Last Admin: 01/30/19 13:25 Dose: 20 mg Documented by: Morphine Sulfate (Morphine Sulfate (Inj)) 4 mg IV Q4HR PRN PRN Reason: Severe Pain Last Admin: 01/30/19 19:22 Dose: 4 mg Documented by: Naloxone HCl (Narcan) 0.2 mg IV Q2M PRN PRN Reason: Opioid Reversal Nicotine (Habitrol 21mg/24hr Patch) 1 patch TRANSDERM DAILY [facility] Last Admin: 01/30/19 17:35 Dose: Not Given Documented by: Home Medications Medication Instructions Recorded Confirmed Type Aspirin EC [Ecotrin Low Dose] 81 mg PO DAILY 05/20/16 01/29/19 History Bp Med(Unknown) 1 tab PO TID 01/29/19 01/29/19 History Allergies Allergy/AdvReac Type Severity Reaction Status Date / Time No Known Allergies Allergy Verified 01/29/19 20:30 Physical Exam Vitals: Vital Signs Temp Pulse Pulse Resp BP BP Pulse Ox 01/30/19 20:29 97.5 F L 81 16 165/82 99 01/30/19 17:41 98.4 F 17 162/78 95 01/30/19 17:15 79 16 177/88 95 01/30/19 17:10 182/91 01/30/19 17:03 85 16 186/95 93 L 01/30/19 16:49 189/93 01/30/19 16:46 79 16 191/94 99 01/30/19 16:34 98.0 F 92 16 136/74 93 L 01/30/19 11:28 98.1 F 81 20 183/92 97 01/30/19 05:06 98.8 F 83 20 154/97 98 01/29/19 23:56 153/78 01/29/19 23:05 98.1 F 88 16 192/109 98 01/29/19 20:58 98.3 F 87 18 172/96 99 Intake and Output 01/30/19 01/30/19 01/30/19 06:59 14:59 22:59 Intake Total 800 800 350 Output Total 550 405 Balance 800 250 -55 Intake: IV 350 Intake, IV Titration 800 800 Amount Sodium Chloride 0.9% 1, 800 800 000 ml @ 100 mls/hr IV . Q10H [facility] Rx#:[id number] Output: Urine 550 400 Estimated Blood Loss 5 Other: Voiding Method Toilet # Voids 2 53-year-old male who appears older than his stated age, has obesity, and very poor hygiene HEENT: Anicteric conjunctiva are pink and moist nasal mucosa grossly intact with out significant lesions, there is no thrush. Teeth are carious and broken Neck: The neck is supple without significant lymphadenopathy or thyromegaly. Lungs: There are symmetrical bilateral air entry expiratory wheezes are scattered throughout the lung araujo but no bronchial sounds are heard. There is no distinct dullness or egophony Heart: Mildly irregular with a positive S4. There is no significant murmur click or rub, PMI was nondisplaced. Abdomen: obese Positive bowel sounds soft and nontender without palpable masses or organomegaly. There was no guarding or rebound. Extremities: The right upper extremitiesHas a IV intact in its without difficulty. The left hand which is dominant and shows evidence of the significant injury with the distinct tenderness and swelling especially to the interspace between the thumb and first finger. The area is fluctuant there is no expressible drainage or dense erythema swelling and significant tenderness. There is no significant epitrochlear or axillary lymphadenopathy. No other abnormal lymph nodes are noted. The right foot reveals evidence of the traumatic wound on the dorsum of the foot is also fluctuant erythematous tender with some ascending erythema on the dorsum of the foot. There is no ascending lymphangitis and there is no distinct lymphadenopathy into the right groin. Neuro: Awake alert oriented to person place and time. There are no acute new gross focal sensory motor deficits. Results CBC & Chem 7: 01/29/19 19:45 01/30/19 14:07 Labs: Abnormal Lab Results - Last 24 Hours (Table) 01/29/19 01/30/19 Range/Units 19:45 14:07 Potassium 2.9 L 3.0 L (3.5-5.1) mmol/L Chloride 96 L (98-107) mmol/L Carbon Dioxide 33 H (22-30) mmol/L Glucose 109 H 126 H (74-99) mg/dL Calcium 11.2 H 10.5 H (8.4-10.2) mg/dL Laboratory Results WBC 8.3 k/uL (3.8-10.6) 01/29/19 19:45 RBC 4.46 m/uL (4.30-5.90) 01/29/19 19:45 Hgb 14.1 gm/dL (13.0-17.5) 01/29/19 19:45 Hct 42.1 % (39.0-53.0) 01/29/19 19:45 MCV 94.4 fL (80.0-100.0) 01/29/19 19:45 MCH 31.6 pg (25.0-35.0) 01/29/19 19:45 MCHC 33.5 g/dL (31.0-37.0) 01/29/19 19:45 RDW 12.5 % (11.5-15.5) 01/29/19 19:45 Plt Count 193 k/uL (150-450) 01/29/19 19:45 Neutrophils % 74 % 01/29/19 19:45 Lymphocytes % 15 % 01/29/19 19:45 Monocytes % 7 % 01/29/19 19:45 Eosinophils % 2 % 01/29/19 19:45 Basophils % 0 % 01/29/19 19:45 Neutrophils # 6.2 k/uL (1.3-7.7) 01/29/19 19:45 Lymphocytes # 1.2 k/uL (1.0-4.8) 01/29/19 19:45 Monocytes # 0.6 k/uL (0-1.0) 01/29/19 19:45 Eosinophils # 0.1 k/uL (0-0.7) 01/29/19 19:45 Basophils # 0.0 k/uL (0-0.2) 01/29/19 19:45 Sodium 137 mmol/L (137-145) 01/30/19 14:07 Potassium 3.0 mmol/L (3.5-5.1) L 01/30/19 14:07 Chloride 101 mmol/L (98-107) 01/30/19 14:07 Carbon Dioxide 29 mmol/L (22-30) 01/30/19 14:07 Anion Gap 7 mmol/L 01/30/19 14:07 BUN 14 mg/dL (9-20) 01/30/19 14:07 Creatinine 0.94 mg/dL (0.66-1.25) 01/30/19 14:07 Est GFR (CKD-EPI)AfAm >90 (>60 ml/min/1.73 sqM) 01/30/19 14:07 Est GFR (CKD-EPI)NonAf >90 (>60 ml/min/1.73 sqM) 01/30/19 14:07 Glucose 126 mg/dL (74-99) H 01/30/19 14:07 Calcium 10.5 mg/dL (8.4-10.2) H 01/30/19 14:07 Total Bilirubin 1.1 mg/dL (0.2-1.3) 01/29/19 19:45 AST 55 U/L (17-59) 01/29/19 19:45 ALT 69 U/L (21-72) 01/29/19 19:45 Alkaline Phosphatase 91 U/L (38-126) 01/29/19 19:45 Total Protein 6.9 g/dL (6.3-8.2) 01/29/19 19:45 Albumin 3.7 g/dL (3.5-5.0) 01/29/19 19:45 Assessment and Plan (1) Cellulitis and abscess of foot Current Visit: Yes Status: Acute Code(s): L03.119 - CELLULITIS OF UNSPECIFIED PART OF LIMB; L02.619 - CUTANEOUS ABSCESS OF UNSPECIFIED FOOT SNOMED Code(s): 985945424 (2) Cellulitis and abscess of hand Narrative/Plan: 53-year-old male has multiple medical troubles including his history of prior aneurysm with debility. Relates that his dog and the neighbor's dog got into a dog fight. When he them he ended up getting a dog bite on his dominant left hand from the neighbor's dog. There is also injured the dorsum of his foot that he does not believe was a bite. We will Bring him in the next short period of time with incision and drainage of these areas. Antibiotic therapy will with Unasyn given a dog bite. He does not have a known history of MRSA. Wound care can be further directed once the surgical incision and drainage has occurred. The length antibiotic therapy will determine if there is tenosynovitis or deeper infection. Were requesting if the animal control has records about the animal and if the patient requires further rabies vaccinations. The patient is instructed that if there is no data he will need to complete the series. He does relate that his dog is up-to-date on vaccines. Current Visit: Yes Status: Acute Code(s): L03.119 - CELLULITIS OF UNSPECIFIED PART OF LIMB; L02.519 - CUTANEOUS ABSCESS OF UNSPECIFIED HAND SNO MED Code(s): 917534498 (3) Dog bite of left hand Current Visit: Yes Status: Acute Code(s): S61.452A - OPEN BITE OF LEFT HAND, INITIAL ENCOUNTER; W54.0XXA - BITTEN BY DOG, INITIAL ENCOUNTER SNOMED Code(s): 451216090 (4) Essential (primary) hypertension Current Visit: Yes Status: Acute Code(s): I10 - ESSENTIAL (PRIMARY) HYPERTENSION SNOMED Code(s): 95635881 (5) Personal history of arterial aneurysm Current Visit: Yes Status: Acute Code(s): Z86.79 - PERSONAL HISTORY OF OTHER DISEASES OF THE CIRCULATORY SYSTEM SNOMED Code(s): 614032143
[2019-01-31] MEDS: SODIUM CHLORIDE 0.9% 1,000 ML IV SCH ×3 (06:16→21:34)
[2019-01-31] MEDS: LISINOPRIL 20 MG TAB PO SCH (09:08)
[2019-01-31] MEDS: hydrALAZINE HCL 10 MG TAB PO SCH ×4 (09:08→21:30)
[2019-01-31] MEDS: FAMOTIDINE 20 MG TAB PO SCH (09:08)
[2019-01-31] MEDS: AMPICILLIN-SULBACTAM 3 GM in SODIUM CHLORIDE 0.9% 100 ML IVPB SCH ×3 (09:09→23:33)
[2019-01-31] MEDS: NICOTINE 21MG/24HR PATCH TRANSDERM SCH (09:09)
[2019-01-31] MEDS: HYDROcodone/APAP 5-325MG 1 EACH TAB PO PRN ×3 (09:11→21:30)
[2019-01-31 10:31] LABS: African American GFR (CKD) >90 (>60 ml/min/1.73 sqM); Anion Gap 6 mmol/L; Blood Urea Nitrogen 15 mg/dL (9-20); Calcium 10.6 mg/dL (8.4-10.2); Carbon Dioxide 32 mmol/L (22-30); Chloride 101 mmol/L (98-107); Glucose 106 mg/dL (74-99); Magnesium 1.8 mg/dL (1.6-2.3); Potassium 3.2 mmol/L (3.5-5.1); Sodium 139 mmol/L (137-145)
[2019-01-31 10:35] LABS: Basophils # (A) 0.1 k/uL (0-0.2); Basophils % (A) 1 %; Eosinophils # (A) 0.1 k/uL (0-0.7); Eosinophils % (A) 2 %; HCT 39.9 % (39.0-53.0); HGB 14.4 gm/dL (13.0-17.5); Lymphocytes # (A) 1.4 k/uL (1.0-4.8); Lymphocytes % (A) 18 %; MCHC 36.1 g/dL (31.0-37.0); MCV 91.4 fL (80.0-100.0); Mean Platelet Volume 7.8; Monocytes # (A) 0.6 k/uL (0-1.0); Monocytes % (A) 8 %; Neutrophils # (A) 5.3 k/uL (1.3-7.7); Neutrophils % (A) 69 %; Platelet Count 185 k/uL (150-450); RBC 4.36 m/uL (4.30-5.90); RDW 12.2 % (11.5-15.5); WBC 7.7 k/uL (3.8-10.6)
[2019-01-31] MEDS ORDERED: Potassium Replacement Protocol 1 EACH MISC MISCELLANE PRN (11:15)
[2019-01-31] MEDS ORDERED: Magnesium Replacement Protocol 1 EACH MISC MISCELLANE PRN (11:15)
[2019-01-31] MEDS: POTASSIUM CHLORIDE ER 20 MEQ TAB.ER PO SCH ×2 (12:25→13:32)
[2019-01-31] MEDS: MAGNESIUM SULFATE-D5W PMX 1 GM in DEXTROSE/WATER 1 100ML.BAG IVPB SCH ×2 (12:25→13:32)
[2019-01-31] MEDS ORDERED: POTASSIUM CHLORIDE ER 20 MEQ TAB.ER PO SCH (17:00)
[2019-02-01] MEDS ORDERED: hydrALAZINE HCL 20 MG/ML 1 ML VIAL IVP STA (05:01)
[2019-02-01] MEDS: SODIUM CHLORIDE 0.9% 1,000 ML IV SCH ×2 (05:07→14:56)
[2019-02-01] MEDS: MORPHINE SULFATE 4 MG/ML SYRINGE IV PRN (05:37)
[2019-02-01] MEDS: LISINOPRIL 20 MG TAB PO SCH (07:33)
[2019-02-01] MEDS: FAMOTIDINE 20 MG TAB PO SCH (07:33)
[2019-02-01] MEDS: hydrALAZINE HCL 10 MG TAB PO SCH ×4 (07:33→21:04)
[2019-02-01] MEDS: AMPICILLIN-SULBACTAM 3 GM in SODIUM CHLORIDE 0.9% 100 ML IVPB SCH ×2 (07:34→16:09)
[2019-02-01] MEDS: NICOTINE 21MG/24HR PATCH TRANSDERM SCH (07:35)
[2019-02-01 09:41] LABS: Magnesium 2.1 mg/dL (1.6-2.3)
[2019-02-01 09:44] LABS: Potassium 4.1 mmol/L (3.5-5.1)
[2019-02-01] MEDS ORDERED: HYDROcodone/APAP 5-325MG 1 EACH TAB PO PRN (11:12)
[2019-02-01] MEDS ORDERED: HYDROcodone/APAP 7.5-325MG 1 EACH TAB PO PRN (13:27)
[2019-02-01] MEDS ORDERED: amLODIPine 5 MG TAB PO SCH (14:15)
--- NOTE | 2019-02-01 14:54 | P.PN ---
Subjective Progress Note Date: 02/01/19 Principal diagnosis: Status post l I&D eft hand and right foot abscess Patient is evaluated today at bedside, Dr. Topete was available to examine the patient. Postoperative bandages were removed. He notes improvement in both the foot and the hand. Objective - Vital Signs Vital signs: Vital Signs Temp 98.7 F 02/01/19 11:45 Pulse 74 02/01/19 11:45 Resp 18 02/01/19 11:45 BP 175/93 02/01/19 11:45 Pulse Ox 98 02/01/19 11:45 Intake & Output 01/31/19 02/01/19 02/01/19 18:59 06:59 18:59 Intake Total 850 Output Total 350 Balance -350 850 Intake: Intake, IV Titration 850 Amount Ampicillin-Sulbactam 3 gm 100 In Sodium Chloride 0.9% 100 ml @ 200 mls/hr IVPB Q8HR [facility] Rx#:[id number] Sodium Chloride 0.9% 1, 750 000 ml @ 100 mls/hr IV . Q10H [facility] Rx#:[id number] Output: Urine 350 Other: Voiding Method Urinal Urinal Urinal # Voids 2 1 - Exam Right foot: Stitches are in good position and condition. Erythema and soft tissue swelling has improved. No active drainage visualized from the foot. Sensation to light touch is intact Left hand: Stitches are in good position and condition. There is anywhere swelling with drainage noted over the dorsum of the hand near the third MCP joint. There is pain with palpation and fluctuance appreciated. Sensation to light touch is intact - Labs CBC & Chem 7: 01/31/19 09:15 02/01/19 08:33 Labs: Microbiology - Last 24 Hours (Table) 01/29/19 19:45 Blood Culture - Preliminary Blood No Growth after 48 hours 01/30/19 16:23 Gram Stain - Preliminary Hand - Left Wound Culture - Preliminary Strep agalactiae - (group b) 01/30/19 16:23 Gram Stain - Preliminary Foot - Right Wound Culture - Preliminary Strep agalactiae - (group b) Assessment and Plan Plan: Assessment: 1. Postop day #2 status post I&D left hand and right foot abscess 2. New left dorsal hand abscess 3. Other medical comorbidities Plan: Dr. Topete to discuss treatment options the patient today at bedside. We recommend a incision and drainage with irrigation and debridement of the new abscess on the left hand. We would like to proceed with this tomorrow afternoon. Patient will be made nothing by mouth after midnight Infectious disease and other medical special recommendations Nothing by mouth after midnight Further recommendations after surgery Time with Patient: Less than 30
--- NOTE | 2019-02-01 16:24 | P.PN ---
Subjective Progress Note Date: 02/01/19 This is a pleasant 53-year-old white male patient of my partner. He reports that 8 days ago, on January 22, his dog and his friend's dog began fighting and in breaking up he was bitten on the right foot and left hand. These puncture wounds since worsened with increased redness pain and swelling. He had not followed up at all and our office until his symptoms became severe enough that he came to the emergency room yesterday. He is status post 1 dose of Unasyn. Orthopedic surgery consult is pending. He denies any chest pains, pressures, shortness of breath, nausea or vomiting. He only complains of pain in his bite sites. 01/31/2019 maintained on IV antibiotics, adjusted. T-max 99.7. Complains of pain worsened on upper left affected extremity. Evaluated by orthopedic surgery, recommendations noted and appreciated. Blood pressure is uncontrolled. Potassium 3.2, creatinine 1.04. Objective - Vital Signs Vital signs: Vital Signs Temp 97.8 F 01/31/19 12:48 Pulse 78 01/31/19 12:48 Resp 17 01/31/19 12:48 BP 183/90 01/31/19 12:48 Pulse Ox 98 01/31/19 12:48 Intake & Output 01/30/19 01/31/19 01/31/19 18:59 06:59 18:59 Intake Total 1150 890 Output Total 955 350 Balance 195 890 -350 Intake: IV 350 Intake, IV Titration 800 300 Amount Sodium Chloride 0.9% 1, 800 300 000 ml @ 100 mls/hr IV . Q10H [facility] Rx#:[id number] Oral 590 Output: Urine 950 350 Estimated Blood Loss 5 Other: Voiding Method Urinal Urinal # Voids 2 - Exam GENERAL: Alert and oriented 3, tired appearing, no acute distress HEAD: Atraumatic, normocephalic. EYES: Pupils equal round and reactive to light, extraocular movements intact, sclera anicteric, conjunctiva are normal. ENT:nares patent, oropharynx clear without exudates. Moist mucous membranes. NECK: Normal range of motion, supple without lymphadenopathy or JVD, no thyromegaly LUNGS: Breath sounds clear to auscultation bilaterally and equal. No wheezes rales or rhonchi. HEART: Regular rate and rhythm without murmurs, rubs or gallops.S1S2 Normal ABDOMEN: Soft, nontender, normoactive bowel sounds. No guarding, no rebound. No masses appreciated. EXTREMITIES/SKIN: left hand dressing clean dry and intact, edematous, reddened and right foot dressing clean dry and intact, edematous and reddened. Left hand edema greater than right foot edema. Positive radial and DP pulses. NEUROLOGICAL: Cranial nerves II through XII grossly intact. Moves all 4 extremities, strength and sensation grossly intact no focal deficits PSYCH: Normal mood, normal affect. - Labs CBC & Chem 7: 01/31/19 09:15 02/01/19 08:33 Labs: Abnormal Lab Results - Last 24 Hours (Table) 01/31/19 Range/Units 09:15 Potassium 3.2 L (3.5-5.1) mmol/L Carbon Dioxide 32 H (22-30) mmol/L Glucose 106 H (74-99) mg/dL Calcium 10.6 H (8.4-10.2) mg/dL Microbiology - Last 24 Hours (Table) 01/30/19 16:23 Gram Stain - Preliminary Foot - Right Wound Culture - Preliminary 01/30/19 16:23 Gram Stain - Preliminary Hand - Left Wound Culture - Preliminary 01/29/19 19:45 Blood Culture - Preliminary Blood No Growth after 24 hours 01/30/19 16:23 Anaerobic Culture - Preliminary Foot - Right 01/30/19 16:23 Anaerobic Culture - Preliminary Hand - Left Assessment and Plan Assessment: (1) Dog bite of left hand Current Visit: Yes Status: Acute Code(s): S61.452A - OPEN BITE OF LEFT HAND, INITIAL ENCOUNTER; W54.0XXA - BITTEN BY DOG, INITIAL ENCOUNTER SNOMED Code(s): 852650043 (2) Cellulitis and abscess of foot, status post I&D Current Visit: Yes Status: Acute Code(s): L03.119 - CELLULITIS OF UNSPECIFIED PART OF LIMB; L02.619 - CUTANEOUS ABSCESS OF UNSPECIFIED FOOT SNOMED Code(s): 732297306 (3) Cellulitis and abscess of hand, status post I&D Current Visit: Yes Status: Acute Code(s): L03.119 - CELLULITIS OF UNSPECIFIED PART OF LIMB; L02.519 - CUTANEOUS ABSCESS OF UNSPECIFIED HAND SNOMED Code(s): 825807747 (4) Essential (primary) hypertension Current Visit: Yes Status: Acute Code(s): I10 - ESSENTIAL (PRIMARY) HYPE RTENSION SNOMED Code(s): 47798417 (5) Personal history of arterial aneurysm Current Visit: Yes Status: Acute Code(s): Z86.79 - PERSONAL HISTORY OF OTHER DISEASES OF THE CIRCULATORY SYSTEM SNOMED Code(s): 995028899 (6) Dog bite of right foot Current Visit: Yes Status: Acute Code(s): S91.351A - OPEN BITE, RIGHT FOOT, INITIAL ENCOUNTER; W54.0XXA - BITTEN BY DOG, INITIAL ENCOUNTER SNOMED Code(s): 109381449 (7) Hypertension Current Visit: No Status: Acute Code(s): I10 - ESSENTIAL (PRIMARY) HYPERTENSION SNOMED Code(s): 69769066 (8) hypokalemia Plan: Continue current medication regime, monitoring and symptomatically treatment. Follow cultures closely. Infectious disease consulted. SPENCER inhibitor added to med regime, close monitoring of blood pressures. Potassium 3.2, potassium replacement protocol ordered. Close monitoring of electrolytes with repeat labs ordered for a.m. Increase ambulation as tolerated. Further recommendations to follow. The impression and plan of care has been dictated as directed. : I performed a history and examination of this patient, discussed the same with the dictator. I agree with the dictator's note ,documented as a scribe. Any additional findings or plans will be noted.
[2019-02-01] MEDS ORDERED: HYDROcodone/APAP 7.5-325MG 1 EACH TAB PO ONE (16:37)
--- NOTE | 2019-02-01 17:24 | P.PN ---
Subjective Progress Note Date: 02/01/19 This is a pleasant 53-year-old white male patient of my partner. He reports that 8 days ago, on January 22, his dog and his friend's dog began fighting and in breaking up he was bitten on the right foot and left hand. These puncture wounds since worsened with increased redness pain and swelling. He had not followed up at all and our office until his symptoms became severe enough that he came to the emergency room yesterday. He is status post 1 dose of Unasyn. Orthopedic surgery consult is pending. He denies any chest pains, pressures, shortness of breath, nausea or vomiting. He only complains of pain in his bite sites. 01/31/2019 maintained on IV antibiotics, adjusted. T-max 99.7. Complains of pain worsened on upper left affected extremity. Evaluated by orthopedic surgery, recommendations noted and appreciated. Blood pressure is uncontrolled. Potassium 3.2, creatinine 1.04. 02/01/2019 potassium 4.1. Mag 2.1 uncontrolled hypertension throughout the night and received an additional dose of hydralazine. wound cx cultures reporting strep agalactiae group b. Preliminary blood cultures negative. Maintained on Unasyn. Afebrile. Reports pain has lessened compared to yesterday. Hypertensive. Objective - Vital Signs Vital signs: Vital Signs Temp 98.7 F 02/01/19 11:45 Pulse 81 02/01/19 16:21 Resp 18 02/01/19 11:45 BP 195/115 02/01/19 16:21 Pulse Ox 98 02/01/19 11:45 Intake & Output 01/31/19 02/01/19 02/01/19 18:59 06:59 18:59 Intake Total 850 Output Total 350 600 Balance -350 850 -600 Intake: Intake, IV Titration 850 Amount Ampicillin-Sulbactam 3 gm 100 In Sodium Chloride 0.9% 100 ml @ 200 mls/hr IVPB Q8HR [facility] Rx#:[id number] Sodium Chloride 0.9% 1, 750 000 ml @ 100 mls/hr IV . Q10H [facility] Rx#:[id number] Output: Urine 350 600 Other: Voiding Method Urinal Urinal Urinal # Voids 2 1 - Exam GENERAL: Alert and oriented 3, tired appearing, no acute distress HEAD: Atraumatic, normocephalic. EYES: Pupils equal round and reactive to light, extraocular movements intact, sclera anicteric, conjunctiva are normal. ENT:nares patent, oropharynx clear without exudates. Moist mucous membranes. NECK: Normal range of motion, supple without lymphadenopathy or JVD, no thyromegaly LUNGS: Breath sounds clear to auscultation bilaterally and equal. No wheezes rales or rhonchi. HEART: Regular rate and rhythm without murmurs, rubs or gallops.S1S2 Normal ABDOMEN: Soft, nontender, normoactive bowel sounds. No guarding, no rebound. No masses appreciated. EXTREMITIES/SKIN: left hand dressing clean dry and intact, edematous, and right foot dressing clean dry and intact, edematous. Left hand dorsum edema increased. Positive radial and DP pulses. NEUROLOGICAL: Cranial nerves II through XII grossly intact. Moves all 4 extremities, strength and sensation grossly intact no focal deficits PSYCH: Normal mood, normal affect. - Labs CBC & Chem 7: 01/31/19 09:15 02/01/19 08:33 Labs: Microbiology - Last 24 Hours (Table) 01/29/19 19:45 Blood Culture - Preliminary Blood No Growth after 48 hours 01/30/19 16:23 Gram Stain - Preliminary Hand - Left Wound Culture - Preliminary Strep agalactiae - (group b) 01/30/19 16:23 Gram Stain - Preliminary Foot - Right Wound Culture - Preliminary Strep agalactiae - (group b) Assessment and Plan Assessment: (1) Dog bite of left hand Current Visit: Yes Status: Acute Code(s): S61.452A - OPEN BITE OF LEFT HAND, INITIAL ENCOUNTER; W54.0XXA - BITTEN BY DOG, INITIAL ENCOUNTER SNOMED Code(s): 847986825 (2) Cellulitis and abscess of foot, status post I&D Current Visit: Yes Status: Acute Code(s): L03.119 - CELLULITIS OF UNSPECIFIED PART OF LIMB; L02.619 - CUTANEOUS ABSCESS OF UNSPECIFIED FOOT SNOMED Code(s): 936534720 (3) Cellulitis and abscess of hand, status post I&D. New Left dorsal hand abscess with I&D/debridement pending. Current Visit: Yes Status: Acute Code(s): L03.119 - CELLULITIS OF UNSPECIFIED PART OF LIMB; L02.519 - CUTANEOUS ABSCESS OF UNSPECIFIED HAND SNOMED Code(s): 446914116 (4) Essential (primary) hypertension Current Visit: Yes Status: Acute Code(s): I10 - ESSENTIAL (PRIMARY) HYPERTENSION SNOMED Code(s): 72076605 (5) Personal history of arterial aneurysm Current Visit: Yes Status: Acute Code(s): Z86.79 - PERSONAL HISTORY OF OTHER DISEASES OF THE CIRCULATORY SYSTEM SNOMED Code(s): 321713109 (6) Dog bite of right foot Current Visit: Yes Status: Acute Code(s): S91.351A - OPEN BITE, RIGHT FOOT, INITIAL ENCOUNTER; W54.0XXA - BITTEN BY DOG, INITIAL ENCOUNTER SNOMED Code(s): 903915798 (7) Hypertension Current Visit: No Status: Acute Code(s): I10 - ESSENTIAL (PRIMARY) HYPERTENSION SNOMED Code(s): 75068484 (8) hypokalemia Plan: Continue current medication regime, monitoring and symptomatically treatment. Scheduled for return to OR tomorrow for further I&D/debridement of left hand. Antihypertensives med regimen adjusted further.close monitoring of blood pressures. Pain management. Increase ambulation as tolerated. Further recommendations to follow. The impression and plan of care has been dictated as directed. : I performed a history and examination of this patient, discussed the same with the dictator. I agree with the dictator's note ,documented as a scribe. Any additional findings or plans will be noted.
[2019-02-01] MEDS ORDERED: amLODIPine 5 MG TAB PO STA (18:08)
--- NOTE | 2019-02-01 20:54 | P.PN ---
Subjective Progress Note Date: 02/01/19 53-year-old male who relates that his pet dog kind to a dog fight with a neighbor's dog. He then attempted to separate the animals and ended up with a bite on his left hand, which is his dominant hand, as well as an injury to his right foot that occurred during the event. He does not believe the foot was bitten but was likely injured by dog nails. The patient worsened over several days and eventually presented to the emergency center last night evidence of fever increasing pain to the left hand and foot such that he is having difficulty utilizing his dominant hand. At the time of presentation was evidence of gino infection to both the hand and the foot and constantly orthopedic consults were requested. He will be going to the operating room in the next short period of time for the incision and drainage of the significant wounds and infection. Emergency room did give tetanus immunoglobulin in the first tetanus vaccine. The patient is having significant pain and expect this will improve with the surgical debridement Tetanus vaccine was very updated 02/01/2019 the patient is doing somewhat better but still having some pain and swelling. He has denying fevers or chills. He showing some improvement with antibiotic therapy. Surgical notes have been reviewed and there was no evidence of any tenosynovitis or joint involvement. Objective - Vital Signs Vital signs: Vital Signs Temp 98.7 F 02/01/19 11:45 Pulse 86 02/01/19 18:08 Resp 18 02/01/19 11:45 BP 172/83 02/01/19 18:08 Pulse Ox 98 02/01/19 11:45 Intake & Output 02/01/19 02/01/19 02/02/19 06:59 18:59 06:59 Intake Total 850 Output Total 600 Balance 850 -600 Intake: Intake, IV Titration 850 Amount Ampicillin-Sulbactam 3 gm 100 In Sodium Chloride 0.9% 100 ml @ 200 mls/hr IVPB Q8HR [facility] Rx#:[id number] Sodium Chloride 0.9% 1, 750 000 ml @ 100 mls/hr IV . Q10H [facility] Rx#:[id number] Output: Urine 600 Other: Voiding Method Urinal Urinal # Voids 1 - Exam 53-year-old male who appears older than his stated age, has obesity, and very poor hygiene HEENT: Anicteric conjunctiva are pink and moist nasal mucosa grossly intact without significant lesions, there is no thrush. Teeth are carious and broken Neck: The neck is supple without significant lymphadenopathy or thyromegaly. Lungs: There are symmetrical bilateral air entry expiratory wheezes are scattered throughout the lung araujo but no bronchial sounds are heard. There is no distinct dullness or egophony Heart: Mildly irregular with a positive S4. There is no significant murmur click or rub, PMI was nondisplaced. Abdomen: obese Positive bowel sounds soft and nontender without palpable masses or organomegaly. There was no guarding or rebound. Extremities: The right upper extremitiesHas a IV intact in its without difficulty. The left hand which is dominant and shows evidence of the significant injury with the distinct tenderness and swelling especially to the interspace between the thumb and first finger. The area has been debrided and there is no expressible relents and no dense erythema swelling and significant tenderness. There is no significant epitrochlear or axillary lymphadenopathy. No other abnormal lymph nodes are noted. The right foot reveals evidence of the traumatic wound on the dorsum of the foot it has now been surgically debrided, there is just some scant serous drainage that is noted on the foot. There is no ascending lymphangitis and there is no distinct lymphadenopathy into the right groin. Neuro: Awake alert oriented to person place and time. There are no acute new gross focal sensory motor deficits. - Labs CBC & Chem 7: 01/31/19 09:15 02/01/19 08:33 Labs: Microbiology - Last 24 Hours (Table) 01/30/19 16:23 Gram Stain - Preliminary Hand - Left Wound Culture - Preliminary Strep agalactiae - (group b) 01/30/19 16:23 Gram Stain - Final Foot - Right Wound Culture - Final Strep agalactiae - (group b) 01/29/19 19:45 Blood Culture - Preliminary Blood No Growth after 48 hours Laboratory Results WBC 7.7 k/uL (3.8-10.6) 01/31/19 09:15 RBC 4.36 m/uL (4.30-5.90) 01/31/19 09:15 Hgb 14.4 gm/dL (13.0-17.5) 01/31/19 09:15 Hct 39.9 % (39.0-53.0) 01/31/19 09:15 MCV 91.4 fL (80.0-100.0) 01/31/19 09:15 MCH 33.0 pg (25.0-35.0) 01/31/19 09:15 MCHC 36.1 g/dL (31.0-37.0) 01/31/19 09:15 RDW 12.2 % (11.5-15.5) 01/31/19 09:15 Plt Count 185 k/uL (150-450) 01/31/19 09:15 Neutrophils % 69 % 01/31/19 09:15 Lymphocytes % 18 % 01/31/19 09:15 Monocytes % 8 % 01/31/19 09:15 Eosinophils % 2 % 01/31/19 09:15 Basophils % 1 % 01/31/19 09:15 Neutrophils # 5.3 k/uL (1.3-7.7) 01/31/19 09:15 Lymphocytes # 1.4 k/uL (1.0-4.8) 01/31/19 09:15 Monocytes # 0.6 k/uL (0-1.0) 01/31/19 09:15 Eosinophils # 0.1 k/uL (0-0.7) 01/31/19 09:15 Basophils # 0.1 k/uL (0-0.2) 01/31/19 09:15 Sodium 139 mmol/L (137-145) 01/31/19 09:15 Potassium 4.1 mmol/L (3.5-5.1) 02/01/19 08:33 Chloride 101 mmol/L (98-107) 01/31/19 09:15 Carbon Dioxide 32 mmol/L (22-30) H 01/31/19 09:15 Anion Gap 6 mmol/L 01/31/19 09:15 BUN 15 mg/dL (9-20) 01/31/19 09:15 Creatinine 1.04 mg/dL (0.66-1.25) 01/31/19 09:15 Est GFR (CKD-EPI)AfAm >90 (>60 ml/min/1.73 sqM) 01/31/19 09:15 Est GFR (CKD-EPI)NonAf 83 (>60 ml/min/1.73 sqM) 01/31/19 09:15 Glucose 106 mg/dL (74-99) H 01/31/19 09:15 Calcium 10.6 mg/dL (8.4-10.2) H 01/31/19 09:15 Magnesium 2.1 mg/dL (1.6-2.3) 02/01/19 08:33 Total Bilirubin 1.1 mg/dL (0.2-1.3) 01/29/19 19:45 AST 55 U/L (17-59) 01/29/19 19:45 ALT 69 U/L (21-72) 01/29/19 19:45 Alkaline Phosphatase 91 U/L (38-126) 01/29/19 19:45 Total Protein 6.9 g/dL (6.3-8.2) 01/29/19 19:45 Albumin 3.7 g/dL (3.5-5.0) 01/29/19 19:45 Microbiology 01/30/19 16:23 Hand - Left Gram Stain - Preliminary 01/30/19 16:23 Hand - Left Wound Culture - Preliminary Strep agalactiae - (group b) 01/30/19 16:23 Foot - Right Gram Stain - Final 01/30/19 16:23 Foot - Right Wound Culture - Final Strep agalactiae - (group b) 01/29/19 19:45 Blood Blood Culture - Preliminary No Growth after 48 hours 01/30/19 16:23 Foot - Right Anaerobic Culture - Preliminary 01/30/19 16:23 Hand - Left Anaerobic Culture - Preliminary Assessment and Plan (1) Cellulitis and abscess of foot Current Visit: Yes Status: Acute Code(s): L03.119 - CELLULITIS OF UNSPECIFIED PART OF LIMB; L02.619 - CUTANEOUS ABSCESS OF UNSPECIFIED FOOT S NOMED Code(s): 015795896 (2) Cellulitis and abscess of hand Narrative/Plan: 53-year-old male has multiple medical troubles including his history of prior aneurysm with debility. Relates that his dog and the neighbor's dog got into a dog fight. When he them he ended up getting a dog bite on his dominant left hand from the neighbor's dog. There is also injured the dorsum of his foot that he does not believe was a bite. We will Bring him in the next short period of time with incision and drainage of these areas. Antibiotic the rapy will with Unasyn given a dog bite. He does not have a known history of MRSA. Wound care can be further directed once the surgical incision and drainage has occurred. The length antibiotic therapy will determine if there is tenosynovitis or deeper infection. Were requesting if the animal control has records about the animal and if the patient requires further rabies vaccinations. The patient is instructed that if there is no data he will need to complete the series. He does relate that his dog is up-to-date on vaccines. February 01 2019 the patient is not having improvement of his status. At this time with the rate of improvement should hopefully be ready for discharge home tomorrow on oral antibiotic therapy. Local wound care should continue with absorptive dressings to the area. He should have home care to help him in the home setting and to continue ongoing evaluations. Diabetic therapy at home would be on Augmentin given the group B strep being isolated from the wounds. Current Visit: Yes Status: Acute Code(s): L03.119 - CELLULITIS OF UNSPECIFIED PART OF LIMB; L02.519 - CUTANEOUS ABSCESS OF UNSPECIFIED HAND SNOMED Code(s): 818645852 (3) Dog bite of left hand Current Visit: Yes Status: Acute Code(s): S61.452A - OPEN BITE OF LEFT HAND, INITIAL ENCOUNTER; W54.0XXA - BITTEN BY DOG, INITIAL ENCOUNTER SNOMED Code(s): 601887058 (4) Essential (primary) hypertension Current Visit: Yes Status: Acute Code(s): I10 - ESSENTIAL (PRIMARY) HYPERTE NSION SNOMED Code(s): 27244029 (5) Personal history of arterial aneurysm Current Visit: Yes Status: Acute Code(s): Z86.79 - PERSONAL HISTORY OF OTHER DISEASES OF THE CIRCULATORY SYSTEM SNOMED Code(s): 965968473
[2019-02-01] MEDS: HYDROcodone/APAP 7.5-325MG 1 EACH TAB PO PRN (21:04)
[2019-02-02] MEDS: AMPICILLIN-SULBACTAM 3 GM in SODIUM CHLORIDE 0.9% 100 ML IVPB SCH ×4 (00:03→20:30)
[2019-02-02] MEDS: SODIUM CHLORIDE 0.9% 1,000 ML IV SCH ×3 (04:08→23:41)
[2019-02-02] MEDS: MORPHINE SULFATE 4 MG/ML SYRINGE IV PRN (04:17)
[2019-02-02 08:23] LABS: Basophils # (A) 0.1 k/uL (0-0.2); Basophils % (A) 1 %; Eosinophils # (A) 0.2 k/uL (0-0.7); Eosinophils % (A) 3 %; HCT 39.9 % (39.0-53.0); Lymphocytes # (A) 1.6 k/uL (1.0-4.8); Lymphocytes % (A) 23 %; MCH 32.4 pg (25.0-35.0); MCV 92.6 fL (80.0-100.0); Mean Platelet Volume 6.5; Monocytes # (A) 0.4 k/uL (0-1.0); Monocytes % (A) 6 %; Neutrophils # (A) 4.4 k/uL (1.3-7.7); Neutrophils % (A) 65 %; Platelet Count 208 k/uL (150-450); RBC 4.31 m/uL (4.30-5.90); RDW 12.3 % (11.5-15.5); WBC 6.9 k/uL (3.8-10.6)
[2019-02-02 08:40] LABS: African American GFR (CKD) >90 (>60 ml/min/1.73 sqM); Anion Gap 7 mmol/L; Blood Urea Nitrogen 17 mg/dL (9-20); Carbon Dioxide 26 mmol/L (22-30); Chloride 107 mmol/L (98-107); Glucose 89 mg/dL (74-99); Sodium 140 mmol/L (137-145)
[2019-02-02 08:41] LABS: Potassium 4.7 mmol/L (3.5-5.1)
[2019-02-02] MEDS: amLODIPine 10 MG TAB PO SCH (09:31)
[2019-02-02] MEDS: LISINOPRIL 20 MG TAB PO SCH (09:31)
[2019-02-02] MEDS: NICOTINE 21MG/24HR PATCH TRANSDERM SCH (09:32)
[2019-02-02] MEDS: FAMOTIDINE 20 MG TAB PO SCH (09:32)
[2019-02-02] MEDS: hydrALAZINE HCL 10 MG TAB PO SCH ×4 (09:32→23:28)
[2019-02-02] MEDS: HYDROcodone/APAP 7.5-325MG 1 EACH TAB PO PRN ×2 (11:39→19:18)
--- NOTE | 2019-02-02 13:05 | P.PN ---
Subjective Progress Note Date: 02/02/19 This is a pleasant 53-year-old white male patient of my partner. He reports that 8 days ago, on January 22, his dog and his friend's dog began fighting and in breaking up he was bitten on the right foot and left hand. These puncture wounds since worsened with increased redness pain and swelling. He had not followed up at all and our office until his symptoms became severe enough that he came to the emergency room yesterday. He is status post 1 dose of Unasyn. Orthopedic surgery consult is pending. He denies any chest pains, pressures, shortness of breath, nausea or vomiting. He only complains of pain in his bite sites. 01/31/2019 maintained on IV antibiotics, adjusted. T-max 99.7. Complains of pain worsened on upper left affected extremity. Evaluated by orthopedic surgery, recommendations noted and appreciated. Blood pressure is uncontrolled. Potassium 3.2, creatinine 1.04. 02/01/2019 potassium 4.1. Mag 2.1 uncontrolled hypertension throughout the night and received an additional dose of hydralazine. wound cx cultures reporting strep agalactiae group b. Preliminary blood cultures negative. Maintained on Unasyn. Afebrile. Reports pain has lessened compared to yesterday. Hypertensive. 02/02/2019 scheduled to return to the OR today for further irrigatio n/debridement of new abscess left hand. Hypertensive, further adjustment of antihypertensives throughout the night. Complains of significant pain of the right hand, pain meds adjusted. Afebrile, normal WBC. IV antibiotics as per ID. Objective - Vital Signs Vital signs: Vital Signs Temp 97.6 F 02/02/19 11:41 Pulse 96 02/02/19 11:41 Resp 17 02/02/19 11:41 BP 175/84 02/02/19 11:41 Pulse Ox 98 02/02/19 05:12 Intake & Output 02/01/19 02/02/19 02/02/19 18:59 06:59 18:59 Intake Total 900 Output Total 600 1000 475 Balance -600 -100 -475 Intake: Intake, IV Titration 900 Amount Ampicillin-Sulbactam 3 gm 100 In Sodium Chloride 0.9% 100 ml @ 200 mls/hr IVPB Q8HR [facility] Rx#:[id number] Sodium Chloride 0.9% 1, 800 000 ml @ 100 mls/hr IV . Q10H [facility] Rx#:[id number] Output: Urine 600 1000 475 Other: Voiding Method Urinal Urinal # Voids 1 1 - Exam GENERAL: Alert and oriented 3, tired appearing, no acute distress HEAD: Atraumatic, normocephalic. EYES: Pupils equal round and reactive to light, extraocular movements intact, sclera anicteric, conjunctiva are normal. ENT:nares patent, oropharynx clear without exudates. Moist mucous membranes. NECK: Normal range of motion, supple without lymphadenopathy or JVD, no thyromegaly LUNGS: Breath sounds clear to auscultation bilaterally and equal. No wheezes rales or rhonchi. HEART: Regular rate and rhythm without murmurs, rubs or gallops.S1S2 Normal ABDOMEN: Soft, nontender, normoactive bowel sounds. No guarding, no rebound. No masses appreciated. EXTREMITIES/SKIN: left hand dressing clean dry and intact, edematous, and right foot dressing clean dry and intact, edematous. Left hand dorsum edema increased. Positive radial and DP pulses. NEUROLOGICAL: Cranial nerves II through XII grossly intact. Moves all 4 ex tremities, strength and sensation grossly intact no focal deficits PSYCH: Normal mood, normal affect. Microbiology 01/29/19 19:45 Blood Blood Culture - Preliminary No Growth after 72 hours 01/30/19 16:23 Hand - Left Gram Stain - Preliminary 01/30/19 16:23 Hand - Left Wound Culture - Preliminary Strep agalactiae - (group b) 01/30/19 16:23 Foot - Right Gram Stain - Final 01/30/19 16:23 Foot - Right Wound Culture - Final Strep agalactiae - (group b) 01/30/19 16:23 Foot - Right Anaerobic Culture - Preliminary 01/30/19 16:23 Hand - Left Anaerobic Culture - Preliminary - Labs CBC & Chem 7: 02/02/19 07:31 02/02/19 07:31 Labs: Abnormal Lab Results - Last 24 Hours (Table) 02/02/19 Range/Units 07:31 Calcium 11.0 H (8.4-10.2) mg/dL Microbiology - Last 24 Hours (Table) 01/29/19 19:45 Blood Culture - Preliminary Blood No Growth after 72 hours 01/30/19 16:23 Gram Stain - Preliminary Hand - Left Wound Culture - Preliminary Strep agalactiae - (group b) 01/30/19 16:23 Gram Stain - Final Foot - Right Wound Culture - Final Strep agalactiae - (group b) Assessment and Plan Assessment: (1) Dog bite of left hand Current Visit: Yes Status: Acute Code(s): S61.452A - OPEN BITE OF LEFT HAND, INITIAL ENCOUNTER; W54.0XXA - BITTEN BY DOG, INITIAL ENCOUNTER SNOMED Code(s): 390468374 (2) Cellulitis and abscess of foot, status post I&D Current Visit: Yes Status: Acute Code(s): L03.119 - CELLULITIS OF UNSPECIFIED PART OF LIMB; L02.619 - CUTANEOUS ABSCESS OF UNSPECIFIED FOOT SNOMED Code(s): 463018989 (3) Cellulitis and abscess of hand, status post I&D. New Left dorsal hand abscess with I&D/debridement pending. Current Visit: Yes Status: Acute Code(s): L03.119 - CELLULITIS OF UNSPECIFIED PART OF LIMB; L02.519 - CUTANEOUS ABSCESS OF UNSPECIFIED HAND SNOMED Code(s): 899196865 (4) Essential (primary) hypertension Current Visit: Yes Status: Acute Code(s): I10 - ESSENTIAL (PRIMARY) HYPERTENSION SNOMED Code(s): 55902135 (5) Personal history of arterial aneurysm Current Visit: Yes Status: Acute Code(s): Z86.79 - PERSONAL HISTORY OF OTHER DISEASES OF THE CIRCULATORY SYSTEM SNOMED Code(s): 804884381 (6) Dog bite of right foot Current Visit: Yes Status: Acute Code(s): S91.351A - OPEN BITE, RIGHT FOOT, INITIAL ENCOUNTER; W54.0XXA - BITTEN BY DOG, INITIAL ENCOUNTER SNOMED Code(s): 611156814 (7) Hypertension Current Visit: No Status: Acute Code(s): I10 - ESSENTIAL (PRIMARY) HYPERTENSION SNOMED Code(s): 23884968 Plan: Continue current medication regime, monitoring and symptomatically treatment. Scheduled for return to OR today for further I&D/debridement of left hand. Antihypertensive and pain management med regimen adjusted further.close monitoring of blood pressure/pain. IV antibiotics as per infectious disease. The impression and plan of care has been dictated as directed. : I performed a history and examination of this patient, discussed the same with the dictator. I agree with the dictator's note ,documented as a scribe. Any additional findings or plans will be noted.
[2019-02-02] MEDS ORDERED: LACTATED RINGERS 1,000 ML IV ONE (14:40)
[2019-02-02] MEDS ORDERED: ONDANSETRON 4 MG/2 ML VIAL IVP ONE (14:54)
[2019-02-02] MEDS ORDERED: LIDOCAINE 1% INJ 10MG/ML (20 ML MDV) ONE (16:36)
[2019-02-02] MEDS ORDERED: fentaNYL (PF) 50 MCG/ML 2 ML AMP ONE (16:36)
[2019-02-02] MEDS ORDERED: MIDAZOLAM 2 MG/2 ML VIAL ONE (16:36)
[2019-02-02] MEDS ORDERED: PROPOFOL 10 MG/ML 20 ML VIAL IV ONE (16:36)
[2019-02-02] MEDS ORDERED: ceFAZolin 1,000 MG in SODIUM CHLORIDE 0.9% 1,000 ML IRRIGATION ONE ×2 (16:56→16:57)
--- NOTE | 2019-02-02 17:24 | P.OP ---
Date of Procedure: 02/02/19 Preoperative Diagnosis: recurrent left dorsal hand abscess status post dog bite Postoperative Diagnosis: same Procedure(s) Performed: incision and drainage with irrigation and debridement left dorsal hand abscess Anesthesia: [facility] Surgeon: Mitchell Topete Estimated Blood Loss (ml): 10 Pathology: other (cultures) Condition: stable Disposition: PACU Indications for Procedure: the patient's a 53-year-old male who presents after previously being bitten by a dog with a left dorsal hand abscess. He underwent irrigation and debridement initially, however was clinically noted to have recurrence. A discussion of the risks and benefits of operative intervention was made with patient. He opted proceed. Risks to include persistence of infection and need for subsequent procedures was discussed. Informed consent was obtained. Operative Findings: as below Description of Procedure: the patient was brought to the operating room, and after induction of general anesthesia the left upper extremity was prepped and draped in normal fashion. The tourniquet was inflated to 250 mm marker. the previous dorsal hand laceration was opened. Fluctuance was noted over the dorsal aspect of the third digit MCP joint. A 1 1/2 cm incision was then made over this. Moderate purulence was encountered. The subcutaneous tissues were divided bluntly. deep cultures were obtained. this extended down to the level of the extensor tendon. the MCP joint did not appear involved. necrotic tissue was sharply debrided with a scalpel down to the level of the extensor tendon. the wound was copiously irrigated with normal saline. A Darius drain was placed. The skin edges were loosely reapproximate simple 3-0 nylon suture. A sterile dressing was applied. The tourniquet was deflated less than 20 minutes total tourniquet time. The pa tient was awoken from general anesthesia and transferred to recovery room in good condition. Blood loss was estimated at 10 mL. No complications were incurred. Sponge and needle counts were correct at the end the case.
[2019-02-02] MEDS ORDERED: HYDROmorphone 1 MG/ML 1 ML SYRINGE IVP ONE ×2 (18:15→18:20)
[2019-02-02] MEDS ORDERED: KETOROLAC 30 MG/ML 1 ML VIAL IVP ONE (18:28)
[2019-02-03] MEDS: HYDROcodone/APAP 7.5-325MG 1 EACH TAB PO PRN ×4 (01:19→22:16)
[2019-02-03] MEDS: AMPICILLIN-SULBACTAM 3 GM in SODIUM CHLORIDE 0.9% 100 ML IVPB SCH ×3 (04:35→22:17)
[2019-02-03 08:12] LABS: Basophils # (A) 0.1 k/uL (0-0.2); Basophils % (A) 1 %; Eosinophils # (A) 0.3 k/uL (0-0.7); Eosinophils % (A) 3 %; HCT 43.9 % (39.0-53.0); Lymphocytes # (A) 1.8 k/uL (1.0-4.8); Lymphocytes % (A) 23 %; MCH 31.5 pg (25.0-35.0); MCHC 34.2 g/dL (31.0-37.0); MCV 91.9 fL (80.0-100.0); Mean Platelet Volume 7.3; Monocytes # (A) 0.5 k/uL (0-1.0); Monocytes % (A) 6 %; Neutrophils % (A) 64 %; Platelet Count 197 k/uL (150-450); RBC 4.77 m/uL (4.30-5.90); RDW 12.1 % (11.5-15.5); WBC 7.7 k/uL (3.8-10.6)
[2019-02-03] MEDS: LISINOPRIL 20 MG TAB PO SCH (08:41)
[2019-02-03] MEDS: amLODIPine 10 MG TAB PO SCH (08:42)
[2019-02-03] MEDS: FAMOTIDINE 20 MG TAB PO SCH (08:43)
[2019-02-03] MEDS: hydrALAZINE HCL 10 MG TAB PO SCH ×4 (08:43→22:18)
--- NOTE | 2019-02-03 10:27 | P.PN ---
Subjective Progress Note Date: 02/03/19 Principal diagnosis: Status post I&D left dorsal hand abscess, I&D right dorsal foot abscess Objective - Vital Signs Vital signs: Vital Signs Temp 98.8 F 02/03/19 08:09 Pulse 80 02/03/19 09:07 Resp 17 02/03/19 09:07 BP 176/84 02/03/19 08:09 Pulse Ox 94 L 02/03/19 08:09 Intake & Output 02/02/19 02/03/19 02/03/19 18:59 06:59 18:59 Intake Total 702 2480 Output Total 885 90 Balance -183 2480 -90 Intake: IV 602 Intake, IV Titration 100 1400 Amount Ampicillin-Sulbactam 3 gm 100 In Sodium Chloride 0.9% 100 ml @ 200 mls/hr IVPB Q8H [facility] Rx#:[id number] Ampicillin-Sulbactam 3 gm 100 100 In Sodium Chloride 0.9% 100 ml @ 200 mls/hr IVPB Q8HR [facility] Rx#:[id number] Sodium Chloride 0.9% 1, 1200 000 ml @ 100 mls/hr IV . Q10H [facility] Rx#:[id number] Oral 1080 Output: Urine 875 90 Estimated Blood Loss 10 Other: Voiding Method Urinal Urinal Toilet Urinal # Voids 1 2 1 - Exam Right foot: Bandage was changed at bedside, granulation tissue present throughout wound, stitches are in good position and condition. Erythema and soft tissue swelling is improved. He is able to wiggle the toes and no difficulty. Sensation touch is intact. No areas of fluctuance appreciated no active drainage Left hand: Postoperative bandages in good position and condition, he is able to wiggle the fingers, sensation and light touch both proximal distal to bandages intact - Labs CBC & Chem 7: 02/03/19 07:33 02/02/19 07:31 Labs: Microbiology - Last 24 Hours (Table) 02/02/19 17:00 Gram Stain - Preliminary Hand - Left Wound Culture - Preliminary 01/30/19 16:23 Anaerobic Culture - Final Hand - Left Anaerobic Gm Negative Bacilli Anaerobic Gm Negative Bacilli#2 Anaerobic Gm Negative Bacilli#3 01/30/19 16:23 Anaerobic Culture - Final Foot - Right Anaerobic Gm Negative Bacilli Anaerobic Gm Negative Bacilli#2 Anaerobic Gm Negative Bacilli#3 01/29/19 19:45 Blood Culture - Preliminary Blood No Growth after 96 hours 02/02/19 17:00 Anaerobic Culture - Preliminary Hand - Left Assessment and Plan Plan: Assessment: s/p I&D left dorsal hand abscess s/p I&D right dorsal foot abscess Plan: Will change dressing and remove drain from left hand tomorrow I did change dressing on right foot today, continue icing and elevating ID recommendations Ice and elevate Time with Patient: Less than 30
[2019-02-03] MEDS: NICOTINE 21MG/24HR PATCH TRANSDERM SCH (11:37)
--- NOTE | 2019-02-03 14:47 | P.PN ---
Subjective Progress Note Date: 02/03/19 This is a pleasant 53-year-old white male patient of my partner. He reports that 8 days ago, on January 22, his dog and his friend's dog began fighting and in breaking up he was bitten on the right foot and left hand. These puncture wounds since worsened with increased redness pain and swelling. He had not followed up at all and our office until his symptoms became severe enough that he came to the emergency room yesterday. He is status post 1 dose of Unasyn. Orthopedic surgery consult is pending. He denies any chest pains, pressures, shortness of breath, nausea or vomiting. He only complains of pain in his bite sites. 01/31/2019 maintained on IV antibiotics, adjusted. T-max 99.7. Complains of pain worsened on upper left affected extremity. Evaluated by orthopedic surgery, recommendations noted and appreciated. Blood pressure is uncontrolled. Potassium 3.2, creatinine 1.04. 02/01/2019 potassium 4.1. Mag 2.1 uncontrolled hypertension throughout the night and received an additional dose of hydralazine. wound cx cultures reporting strep agalactiae group b. Preliminary blood cultures negative. Maintained on Unasyn. Afebrile. Reports pain has lessened compared to yesterday. Hypertensive. 02/02/2019 scheduled to return to the OR today for further irrigatio n/debridement of new abscess left hand. Hypertensive, further adjustment of antihypertensives throughout the night. Complains of significant pain of the right hand, pain meds adjusted. Afebrile, normal WBC. IV antibiotics as per ID. 02/03/2019 status post I&D of left dorsal hand abscess, tolerated procedure well. Pain control improved. Blood pressure improving. Afebrile, normal WBC. Anaerobic cultures reporting gram-negative bacilli, wound cx agalactae B. good diet intake with no nausea vomiting or diarrhea. Denies chest pain, palpitations or shortness of breath. Denies lightheadedness dizziness or focal deficits. Objective - Vital Signs Vital signs: Vital Signs Temp 98.8 F 02/03/19 08:09 Pulse 77 02/03/19 12:32 Resp 18 02/03/19 12:32 BP 160/96 02/03/19 12:32 Pulse Ox 94 L 02/03/19 08:09 Intake & Output 02/02/19 02/03/19 02/03/19 18:59 06:59 18:59 Intake Total 702 2480 Output Total 885 470 Balance -183 2480 -470 Intake: IV 602 Intake, IV Titration 100 1400 Amount Ampicillin-Sulbactam 3 gm 100 In Sodium Chloride 0.9% 100 ml @ 200 mls/hr IVPB Q8H [facility] Rx#:[id number] Ampicillin-Sulbactam 3 gm 100 100 In Sodium Chloride 0.9% 100 ml @ 200 mls/hr IVPB Q8HR [facility] Rx#:[id number] Sodium Chloride 0.9% 1, 1200 000 ml @ 100 mls/hr IV . Q10H [facility] Rx#:[id number] Oral 1080 Output: Urine 875 470 Estimated Blood Loss 10 Other: Voiding Method Urinal Urinal Toilet Urinal # Voids 1 2 1 - Exam GENERAL: Alert and oriented 3, tired appearing, no acute distress HEAD: Atraumatic, normocephalic. EYES: Pupils equal round and reactive to light, extraocular movements intact, sclera anicteric, conjunctiva are normal. ENT:nares patent, oropharynx clear without exudates. Moist mucous membranes. NECK: Normal range of motion, supple without lymphadenopathy or JVD, no thyromegaly LUNGS: Breath sounds clear to auscultation bilaterally and equal. No wheezes rales or rhonchi. HEART: Regular rate and rhythm without murmurs, rubs or gallops.S1S2 Normal ABDOMEN: Soft, nontender, normoactive bowel sounds. No guarding, no rebound. No masses appreciated. EXTREMITIES/SKIN: left hand dressing/Gerald wrap clean dry and intact, and right foot dressing clean dry and intact. Moves digits freely of bilateral extremi ties. Positive radial and DP pulses. NEUROLOGICAL: Cranial nerves II through XII grossly intact. Moves all 4 extremities, strength and sensation grossly intact no focal deficits PSYCH: Normal mood, normal affect. Microbiology 02/02/19 17:00 Hand - Left Gram Stain - Preliminary 02/02/19 17:00 Hand - Left Wound Culture - Preliminary 01/30/19 16:23 Hand - Left Anaerobic Culture - Final Anaerobic Gm Negative Bacilli Anaerobic Gm Negative Bacilli#2 Anaerobic Gm Negative Bacilli#3 01/30/19 16:23 Foot - Right Anaerobic Culture - Final Anaerobic Gm Negative Bacilli Anaerobic Gm Negative Bacilli#2 Anaerobic Gm Negative Bacilli#3 01/29/19 19:45 Blood Blood Culture - Preliminary No Growth after 96 hours 02/02/19 17:00 Hand - Left Anaerobic Culture - Preliminary 01/30/19 16:23 Hand - Left Gram Stain - Preliminary 01/30/19 16:23 Hand - Left Wound Culture - Preliminary Strep agalactiae - (group b) 01/30/19 16:23 Foot - Right Gram Stain - Final 01/30/19 16:23 Foot - Right Wound Culture - Final Strep agalactiae - (group b) - Labs CBC & Chem 7: 02/03/19 07:33 02/02/19 07:31 Labs: Microbiology - Last 24 Hours (Table) 02/02/19 17:00 Gram Stain - Preliminary Hand - Left Wound Culture - Preliminary 01/30/19 16:23 Anaerobic Culture - Final Hand - Left Anaerobic Gm Negative Bacilli Anaerobic Gm Negative Bacilli#2 Anaerobic Gm Negative Bacilli#3 01/30/19 16:23 Anaerobic Culture - Final Foot - Right Anaerobic Gm Negative Bacilli Anaerobic Gm Negative Bacilli#2 Anaerobic Gm Negative Bacilli#3 01/29/19 19:45 Blood Culture - Preliminary Blood No Growth after 96 hours 02/02/19 17:00 Anaerobic Culture - Preliminary Hand - Left Assessment and Plan Assessment: (1) Dog bite of left hand Current Visit: Yes Status: Acute Code(s): S61.452A - OPEN BITE OF LEFT HAND, INITIAL ENCOUNTER; W54.0XXA - BITTEN BY DOG, INITIAL ENCOUNTER SNOMED Code(s): 863056810 (2) Cellulitis and abscess of foot, status post I&D Current Visit: Yes Status: Acute Code(s): L03.119 - CELLULITIS OF UNSPECIFIED PART OF LIMB; L02.619 - CUTANEOUS ABSCESS OF UNSPECIFIED FOOT SNOMED Code(s): 274693335 (3) Cellulitis and abscess of hand, status post I&D. New Left dorsal hand abscess with I&D/debridement. Current Visit: Yes Status: Acute Code(s): L03.119 - CELLULITIS OF UNSPECIFIED PART OF LIMB; L02.519 - CUTANEOUS ABSCESS OF UNSPECIFIED HAND SNOMED Code(s): 113021871 (4) Essential (primary) hypertension Current Visit: Yes Status: Acute Code(s): I10 - ESSENTIAL (PRIMARY) HYPERTENSION SNOMED Code(s): 52114491 (5) Personal history of arterial aneurysm Current Visit: Yes Status: Acute Code(s): Z86.79 - PERSONAL HISTORY OF OTHER DISEASES OF THE CIRCULATORY SYSTEM SNOMED Code(s): 803346472 (6) Dog bite of right foot Current Visit: Yes Status: Acute Code(s): S91.351A - OPEN BITE, RIGHT FOOT, INITIAL ENCOUNTER; W54.0XXA - BITTEN BY DOG, INITIAL ENCOUNTER SNOMED Code(s): 715604244 (7) Hypertension Current Visit: No Status: Acute Code(s): I10 - ESSENTIAL (PRIMARY) HYPERTENSION SNOMED Code(s): 94054364 Plan: Continue current medication regime, monitoring and symptomatically treatment. S/P I&D/debridement of left hand. Pain management. Follow cultures closely. Wound care. IV antibiotics as per infectious disease. The impression and plan of care has been dictated as directed. : I performed a history and examination of this patient, discussed the same with the dictator. I agree with the dictator's note ,documented as a scribe. Any additional findings or plans will be noted.
[2019-02-03] MEDS: SODIUM CHLORIDE 0.9% 1,000 ML IV SCH ×2 (16:46→22:18)
[2019-02-04] MEDS: AMPICILLIN-SULBACTAM 3 GM in SODIUM CHLORIDE 0.9% 100 ML IVPB SCH ×3 (04:35→21:44)
[2019-02-04] MEDS: HYDROcodone/APAP 7.5-325MG 1 EACH TAB PO PRN ×4 (04:38→21:34)
[2019-02-04 07:10] LABS: Glucose,Whole Blood 102 mg/dL (75-99)
[2019-02-04] MEDS: hydrALAZINE HCL 10 MG TAB PO SCH ×4 (07:18→21:35)
[2019-02-04] MEDS: amLODIPine 10 MG TAB PO SCH (07:18)
[2019-02-04] MEDS: LISINOPRIL 20 MG TAB PO SCH (07:19)
[2019-02-04] MEDS: FAMOTIDINE 20 MG TAB PO SCH (07:36)
[2019-02-04] MEDS: NICOTINE 21MG/24HR PATCH TRANSDERM SCH (10:11)
[2019-02-04] MEDS: SODIUM CHLORIDE 0.9% 1,000 ML IV SCH ×3 (11:21→21:33)
[2019-02-04 11:23] LABS: HGB 13.6 gm/dL (13.0-17.5); MCH 32.9 pg (25.0-35.0); MCHC 34.8 g/dL (31.0-37.0); MCV 94.6 fL (80.0-100.0); Mean Platelet Volume 6.1; Platelet Count 191 k/uL (150-450); RBC 4.13 m/uL (4.30-5.90); RDW 12.2 % (11.5-15.5); WBC 6.8 k/uL (3.8-10.6)
--- NOTE | 2019-02-04 11:29 | P.PN ---
Subjective Progress Note Date: 02/04/19 Principal diagnosis: Status post I&D left hand and right foot abscess Patient is evaluated today at bedside, Dr. Topete was available to examine the patient. Postoperative bandages were removed. He notes improvement in both the foot and the hand. Objective - Vital Signs Vital signs: Vital Signs Temp 98.4 F 02/04/19 04:00 Pulse 66 02/04/19 07:15 Resp 16 02/04/19 04:00 BP 164/86 02/04/19 07:15 Pulse Ox 96 02/04/19 04:00 Intake & Output 02/03/19 02/04/19 02/04/19 18:59 06:59 18:59 Intake Total 800 1890 Output Total 470 1600 400 Balance 330 290 -400 Intake: Intake, IV Titration 800 1300 Amount Ampicillin-Sulbactam 3 gm 200 In Sodium Chloride 0.9% 100 ml @ 200 mls/hr IVPB Q8H [facility] Rx#:[id number] Sodium Chloride 0.9% 1, 800 1100 000 ml @ 100 mls/hr IV . Q10H [facility] Rx#:[id number] Oral 590 Output: Urine 470 1600 400 Other: Voiding Method Toilet Toilet Toilet Urinal Urinal Urinal # Voids 4 1 - Exam Right foot: Stitches are in good position and condition. Erythema and soft tissue swelling has improved. No active drainage visualized from the foot. Sensation to light touch is intact Left hand: Stitches are in good position and condition. Drain removed today. Sensation to light touch is intact - Labs CBC & Chem 7: 02/04/19 10:40 02/02/19 07:31 Labs: Abnormal Lab Results - Last 24 Hours (Table) 02/04/19 02/04/19 Range/Units 07:09 10:40 RBC 4.13 L (4.30-5.90) m/uL POC Glucose (mg/dL) 102 H (75-99) mg/dL Microbiology - Last 24 Hours (Table) 01/30/19 16:23 Gram Stain - Final Hand - Left Wound Culture - Final Strep agalactiae - (group b) Pasteurella multocida 01/29/19 19:45 Blood Culture - Preliminary Blood No Growth after 120 hours 02/02/19 17:00 Gram Stain - Preliminary Hand - Left Wound Culture - Preliminary Assessment and Plan Plan: Assessment: 1. Status post I&D left hand and right foot abscess Plan: Continue daily dressing changes Ice and elevate Infectious disease and other medical special recommendations Recommend follow up in 2 week for recheck Time with Patient: Less than 30
--- NOTE | 2019-02-04 11:36 | P.PN ---
Subjective Progress Note Date: 02/04/19 This is a pleasant 53-year-old white male patient of my partner. He reports that 8 days ago, on January 22, his dog and his friend's dog began fighting and in breaking up he was bitten on the right foot and left hand. These puncture wounds since worsened with increased redness pain and swelling. He had not followed up at all and our office until his symptoms became severe enough that he came to the emergency room yesterday. He is status post 1 dose of Unasyn. Orthopedic surgery consult is pending. He denies any chest pains, pressures, shortness of breath, nausea or vomiting. He only complains of pain in his bite sites. 01/31/2019 maintained on IV antibiotics, adjusted. T-max 99.7. Complains of pain worsened on upper left affected extremity. Evaluated by orthopedic surgery, recommendations noted and appreciated. Blood pressure is uncontrolled. Potassium 3.2, creatinine 1.04. 02/01/2019 potassium 4.1. Mag 2.1 uncontrolled hypertension throughout the night and received an additional dose of hydralazine. wound cx cultures reporting strep agalactiae group b. Preliminary blood cultures negative. Maintained on Unasyn. Afebrile. Reports pain has lessened compared to yesterday. Hypertensive. 02/02/2019 scheduled to return to the OR today for further irrigatio n/debridement of new abscess left hand. Hypertensive, further adjustment of antihypertensives throughout the night. Complains of significant pain of the right hand, pain meds adjusted. Afebrile, normal WBC. IV antibiotics as per ID. 02/03/2019 status post I&D of left dorsal hand abscess, tolerated procedure well. Pain control improved. Blood pressure improving. Afebrile, normal WBC. Anaerobic cultures reporting gram-negative bacilli, wound cx agalactae B. good diet intake with no nausea vomiting or diarrhea. Denies chest pain, palpitations or shortness of breath. Denies lightheadedness dizziness or focal deficits. 02/04/2019 reporting pain control continues to improve, greater in hand. Cultures finalizing, maintained on Unasyn. Afebrile, normal WBC. Systolic blood pressures currently in the 160s. Drain is scheduled to be removed from left hand today. Denies chest pain, palpitations or shortness of breath. Objective - Vital Signs Vital signs: Vital Signs Temp 98.4 F 02/04/19 04:00 Pulse 66 02/04/19 07:15 Resp 16 02/04/19 04:00 BP 164/86 02/04/19 07:15 Pulse Ox 96 02/04/19 04:00 Intake & Output 02/03/19 02/04/19 02/04/19 18:59 06:59 18:59 Intake Total 800 1890 Output Total 470 1600 400 Balance 330 290 -400 Intake: Intake, IV Titration 800 1300 Amount Ampicillin-Sulbactam 3 gm 200 In Sodium Chloride 0.9% 100 ml @ 200 mls/hr IVPB Q8H [facility] Rx#:[id number] Sodium Chloride 0.9% 1, 800 1100 000 ml @ 100 mls/hr IV . Q10H [facility] Rx#:[id number] Oral 590 Output: Urine 470 1600 400 Other: Voiding Method Toilet Toilet Toilet Urinal Urinal Urinal # Voids 4 1 - Exam GENERAL: Alert and oriented 3, tired appearing, no acute distress HEAD: Atraumatic, normocephalic. EYES: Pupils equal round and reactive to light, extraocular movements intact, sclera anicteric, conjunctiva are normal. ENT:nares patent, oropharynx clear without exudates. Moist mucous membranes. NECK: Normal range of motion, supple without lymphadenopathy or JVD, no thyromegaly LUNGS: Breath sounds clear to auscultation bilaterally and equal. No wheezes rales or rhonchi. HEART: Regular rate and rhythm without murmurs, rubs or gallops.S1S2 Normal ABDOMEN: Soft, nontender, normoactive bowel sounds. No guarding, no rebound. No masses appreciated. EXTREMITIES/SKIN: left hand dressing/Gerald wrap clean dry and intact, and right foot dressing clean dry and intact. Moves digits freely of bilateral extremities. Positive radial and DP pulses. NEUROLOGICAL: Cranial nerves II through XII grossly intact. Moves all 4 extremities, strength and sensation grossly intact no focal deficits PSYCH: Normal mood, normal affect. Microbiology 01/30/19 16:23 Hand - Left Gram Stain - Final 01/30/19 16:23 Hand - Left Wound Culture - Final Strep agalactiae - (group b) Pasteurella multocida 01/29/19 19:45 Blood Blood Culture - Preliminary No Growth after 120 hours 02/02/19 17:00 Hand - Left Gram Stain - Preliminary 02/02/19 17:00 Hand - Left Wound Culture - Preliminary 01/30/19 16:23 Hand - Left Anaerobic Culture - Final Anaerobic Gm Negative Bacilli Anaerobic Gm Negative Bacilli#2 Anaerobic Gm Negative Bacilli#3 01/30/19 16:23 Foot - Right Anaerobic Culture - Final Anaerobic Gm Negative Bacilli Anaerobic Gm Negative Bacilli#2 Anaerobic Gm Negative Bacilli#3 02/02/19 17:00 Hand - Left Anaerobic Culture - Preliminary 01/30/19 16:23 Foot - Right Gram Stain - Final 01/30/19 16:23 Foot - Right Wound Culture - Final Strep agalactiae - (group b) - Labs CBC & Chem 7: 02/04/19 10:40 02/02/19 07:31 Labs: Abnormal Lab Results - Last 24 Hours (Table) 02/04/19 02/04/19 Range/Units 07:09 10:40 RBC 4.13 L (4.30-5.90) m/uL POC Glucose (mg/dL) 102 H (75-99) mg/dL Microbiology - Last 24 Hours (Table) 01/30/19 16:23 Gram Stain - Final Hand - Left Wound Culture - Final Strep agalactiae - (group b) Pasteurella multocida 01/29/19 19:45 Blood Culture - Preliminary Blood No Growth after 120 hours 02/02/19 17:00 Gram Stain - Preliminary Hand - Left Wound Culture - Preliminary Assessment and Plan Assessment: (1) Dog bite of left hand Current Visit: Yes Status: Acute Code(s): S61.452A - OPEN BITE OF LEFT HAND, INITIAL ENCOUNTER; W54.0XXA - BITTEN BY DOG, INITIAL ENCOUNTER SNOMED Code(s): 420461791 (2) Cellulitis and abscess of foot, status post I&D, cultures reporting agalactae B, gram-negative bacilli Current Visit: Yes Status: Acute Code(s): L03.119 - CELLULITIS OF UNSPECIFIED PART OF LIMB; L02.619 - CUTANEOUS ABSCESS OF UNSPECIFIED FOOT SNOMED Code(s): 578099001 (3) Cellulitis and abscess of hand, status post I&D. New Left dorsal hand abscess with I&D/debridement. Cultures reporting agalactae B,Pasturella multocida, gram-negative bacilli. Current Visit: Yes Status: Acute Code(s): L03.119 - CELLULITIS OF UNSPECIFIED PART OF LIMB; L02.519 - CUTANEOUS ABSCESS OF UNSPECIFIED HAND SNOMED Code(s): 943725284 (4) Essential (primary) hypertension Current Visit: Yes Status: Acute Code(s): I10 - ESSENTIAL (PRIMARY) HYPERTENSION SNOMED Code(s): 75336562 (5) Personal history of arterial aneurysm Current Visit: Yes Status: Acute Code(s): Z86.79 - PERSONAL HISTORY OF OTHER DISEASES OF THE CIRCULATORY SYSTEM SNOMED Code(s): 687421969 (6) Dog bite of right foot Current Visit: Yes Status: Acute Code(s): S91.351A - OPEN BITE, RIGHT FOOT, INITIAL ENCOUNTER; W54.0XXA - BITTEN BY DOG, INITIAL ENCOUNTER SNOMED Code(s): 733437051 (7) Hypertension Current Visit: No Status: Acute Code(s): I10 - ESSENTIAL (PRIMARY) HYPERTENSION SNOMED Code(s): 47712430 Plan: Continue current medication regime, monitoring and symptomatically treatment. Increase ambulation, up in chair for all meals .Pain management. Final cultures pending.Wound care. IV antibiotics as per infectious disease. The impression and plan of care has been dictated as directed. : I performed a history and examination of this patient, discussed the same with the dictator. I agree with the dictator's note ,documented as a scribe. Any additional findings or plans will be noted.
[2019-02-04 11:56] LABS: African American GFR (CKD) >90 (>60 ml/min/1.73 sqM); Anion Gap 9 mmol/L; Blood Urea Nitrogen 17 mg/dL (9-20); Calcium 10.9 mg/dL (8.4-10.2); Carbon Dioxide 25 mmol/L (22-30); Chloride 105 mmol/L (98-107); Glucose 97 mg/dL (74-99); Potassium 3.8 mmol/L (3.5-5.1); Sodium 139 mmol/L (137-145)
[2019-02-05] MEDS: AMPICILLIN-SULBACTAM 3 GM in SODIUM CHLORIDE 0.9% 100 ML IVPB SCH ×3 (04:04→20:24)
--- NOTE | 2019-02-05 07:49 | P.PN ---
Subjective Progress Note Date: 02/04/19 53-year-old male who relates that his pet dog kind to a dog fight with a neighbor's dog. He then attempted to separate the animals and ended up with a bite on his left hand, which is his dominant hand, as well as an injury to his right foot that occurred during the event. He does not believe the foot was bitten but was likely injured by dog nails. The patient worsened over several days and eventually presented to the emergency center last night evidence of fever increasing pain to the left hand and foot such that he is having difficulty utilizing his dominant hand. At the time of presentation was evidence of gino infection to both the hand and the foot and constantly orthopedic consults were requested. He will be going to the operating room in the next short period of time for the incision and drainage of the significant wounds and infection. Emergency room did give tetanus immunoglobulin in the first tetanus vaccine. The patient is having significant pain and expect this will improve with the surgical debridement Tetanus vaccine was very updated 02/01/2019 the patient is doing somewhat better but still having some pain and swelling. He has denying fevers or chills. He showing some improvement with antibiotic therapy. Surgical notes have been reviewed and there was no evidence of any tenosynovitis or joint involvement. 02/04/2019 the patient is still somewhat uncomfortable, he's required a second incision and drainage of his abscess site left hand due to ongoing drainage. Site is showing some slight improvement in the drain that was placed has now been removed today. So having pain at the site and there is still some drainage however the large amount of purulence has now resolved. Objective - Vital Signs Vital signs: Vital Signs Temp 98.8 F 02/05/19 05:37 Pulse 67 02/05/19 05:37 Resp 18 02/05/19 05:37 BP 162/77 02/05/19 05:37 Pulse Ox 98 02/05/19 05:37 Intake & Output 02/04/19 02/05/19 02/05/19 18:59 06:59 18:59 Intake Total 1710 Output Total 400 600 Balance -400 1110 Intake: Intake, IV Titration 700 Amount Ampicillin-Sulbactam 3 gm 100 In Sodium Chloride 0.9% 100 ml @ 200 mls/hr IVPB Q8H [facility] Rx#:[id number] Sodium Chloride 0.9% 1, 600 000 ml @ 100 mls/hr IV . Q10H [facility] Rx#:[id number] Oral 1010 Output: Urine 400 600 Other: Voiding Method Toilet Toilet Urinal Urinal # Voids 2 1 - Exam 53-year-old male who appears older than his stated age, has obesity, and very poor hygiene HEENT: Anicteric conjunctiva are pink and moist nasal mucosa grossly intact without significant lesions, there is no thrush. Teeth are carious and broken Neck: The neck is supple without significant lymphadenopathy or thyromegaly. Lungs: There are symmetrical bilateral air entry expiratory wheezes are scattered throughout the lung araujo but no bronchial sounds are heard. There is no distinct dullness or egophony Heart: Mildly irregular with a positive S4. There is no significant murmur click or rub, PMI was nondisplaced. Abdomen: obese Positive bowel sounds soft and nontender without palpable masses or organomegaly. There was no guarding or rebound. Extremities: The right upper extremitiesHas a IV intact in its without difficulty. The left hand which is dominant and shows evidence of the significant injury with the distinct tenderness and swelling especially to the interspace between the thumb and first finger. The area has been debrided for a second time and there is no significant improvement, the secondary abscess that formed distal to the original site has been drained and now there is significant improvement. There is no expressible purulence. The swelling erythema and tenderness have all improved but certainly not resolved. There is no significant epitrochlear or axillary lymphadenopathy. No other abnormal lymph nodes are noted. The right foot reveals evidence of the traumatic wound on the dorsum of the foot it has now been surgically debrided, there is just some scant serous drainage that is noted on the foot. There is no ascending lymphangitis and there is no distinct lymphadenopathy into the right groin. Neuro: Awake alert oriented to person place and time. There are no acute new gross focal sensory motor deficits. - Labs CBC & Chem 7: 02/04/19 10:40 02/04/19 10:40 Labs: Abnormal Lab Results - Last 24 Hours (Table) 02/04/19 02/04/19 Range/Units 10:40 10:40 RBC 4.13 L (4.30-5.90) m/uL Calcium 10.9 H (8.4-10.2) mg/dL Microbiology - Last 24 Hours (Table) 02/02/19 17:00 Anaerobic Culture - Preliminary Hand - Left 01/29/19 19:45 Blood Culture - Final Blood No Growth after 144 hours 02/02/19 17:00 Gram Stain - Final Hand - Left Wound Culture - Final 01/30/19 16:23 Gram Stain - Final Hand - Left Wound Culture - Final Strep agalactiae - (group b) Pasteurella multocida Laboratory Results WBC 6.8 k/uL (3.8-10.6) 02/04/19 10:40 RBC 4.13 m/uL (4.30-5.90) L 02/04/19 10:40 Hgb 13.6 gm/dL (13.0-17.5) 02/04/19 10:40 Hct 39.0 % (39.0-53.0) 02/04/19 10:40 MCV 94.6 fL (80.0-100.0) 02/04/19 10:40 MCH 32.9 pg (25.0-35.0) 02/04/19 10:40 MCHC 34.8 g/dL (31.0-37.0) 02/04/19 10:40 RDW 12.2 % (11.5-15.5) 02/04/19 10:40 Plt Count 191 k/uL (150-450) 02/04/19 10:40 Neutrophils % 64 % 02/03/19 07:33 Lymphocytes % 23 % 02/03/19 07:33 Monocytes % 6 % 02/03/19 07:33 Eosinophils % 3 % 02/03/19 07:33 Basophils % 1 % 02/03/19 07:33 Neutrophils # 5.0 k/uL (1.3-7.7) 02/03/19 07:33 Lymphocytes # 1.8 k/uL (1.0-4.8) 02/03/19 07:33 Monocytes # 0.5 k/uL (0-1.0) 02/03/19 07:33 Eosinophils # 0.3 k/uL (0-0.7) 02/03/19 07:33 Basophils # 0.1 k/uL (0-0.2) 02/03/19 07:33 Sodium 139 mmol/L (137-145) 02/04/19 10:40 Potassium 3.8 mmol/L (3.5-5.1) 02/04/19 10:40 Chloride 105 mmol/L (98-107) 02/04/19 10:40 Carbon Dioxide 25 mmol/L (22-30) 02/04/19 10:40 Anion Gap 9 mmol/L 02/04/19 10:40 BUN 17 mg/dL (9-20) 02/04/19 10:40 Creatinine 1.01 mg/dL (0.66-1.25) 02/04/19 10:40 Est GFR (CKD-EPI)AfAm >90 (>60 ml/min/1.73 sqM) 02/04/19 10:40 Est GFR (CKD-EPI)NonAf 86 (>60 ml/min/1.73 sqM) 02/04/19 10:40 Glucose 97 mg/dL (74-99) 02/04/19 10:40 POC Glucose (mg/dL) 102 mg/dL (75-99) H 02/04/19 07:09 POC Glu Pull Over Machine Operator ID Jennifer Oscar 02/04/19 07:09 Calcium 10.9 mg/dL (8.4-10.2) H 02/04/19 10:40 Magnesium 2.1 mg/dL (1.6-2.3) 02/01/19 08:33 Total Bilirubin 1.1 mg/dL (0.2-1.3) 01/29/19 19:45 AST 55 U/L (17-59) 01/29/19 19:45 ALT 69 U/L (21-72) 01/29/19 19:45 Alkaline Phosphatase 91 U/L (38-126) 01/29/19 19:45 Total Protein 6.9 g/dL (6.3-8.2) 01/29/19 19:45 Albumin 3.7 g/dL (3.5-5.0) 01/29/19 19:45 Microbiology 02/02/19 17:00 Hand - Left Anaerobic Culture - Preliminary 01/29/19 19:45 Blood Blood Culture - Final No Growth after 144 hours 02/02/19 17:00 Hand - Left Gram Stain - Final 02/02/19 17:00 Hand - Left Wound Culture - Final 01/30/19 16:23 Hand - Left Gram Stain - Final 01/30/19 16:23 Hand - Left Wound Culture - Final Strep agalactiae - (group b) Pasteurella multocida 01/30/19 16:23 Hand - Left Anaerobic Culture - Final Anaerobic Gm Negative Bacilli Anaerobic Gm Negative Bacilli#2 Anaerobic Gm Negative Bacilli#3 01/30/19 16:23 Foot - Right Anaerobic Culture - Final Anaerobic Gm Negative Bacilli Anaerobic Gm Negative Bacilli#2 Anaerobic Gm Negative Bacilli#3 01/30/19 16:23 Foot - Right Gram Stain - Final 01/30/19 16:23 Foot - Right Wound Culture - Final Strep agalactiae - (group b) Assessment and Plan (1) Cellulitis and abscess of foot Current Visit: Yes Status: Acute Code(s): L03.119 - CELLULITIS OF UNSPECIFIED PART OF LIMB; L02.619 - CUTANEOUS ABSCESS OF UNSPECIFIED FOOT SNOMED Code(s): 931277093 (2) Cellulitis and abscess of hand Narrative/Plan: 53-year-old male has multiple medical troubles including his history of prior aneurysm with debility. Relates that his dog and the neighbor's dog got into a dog fight. When he them he ended up getting a dog bite on his dominant left hand from the neighbor's dog. There is also injured the dorsum of his foot that he does not believe was a bite. We will Bring him in the next short period of time with incision and drainage of these areas. Antibiotic therapy will with Unasyn given a dog bite. He does not have a known history of MRSA. Wound care can be further directed once the surgical incision and drainage has occurred. The length antibiotic therapy will determine if there is tenosynovitis or deeper infection. Were requesting if the animal control has records about the animal and if the patient requires further rabies vaccinations. The patient is instructed that if there is no data he will need to complete the series. He does relate that his dog is up-to-date on vaccines. February 01 2019 the patient is not having improvement of his status. At this time with the rate of improvement should hopefully be ready for discharge home tomorrow on oral antibiotic therapy. Local wound care should continue with absorptive dressings to the area. He should have home care to help him in the home setting and to continue ongoing evaluations. Diabetic therapy at home would be on Augmentin given the group B strep being isolated from the wounds. February 04 2019 the patient been taken back to the operating room for the inci tahir and drainage of the left hand abscess the patient is now showing some improvement. There is still some ongoing cellulitis to the hand into the foot there is ongoing improvement. We do have data from the animal control, and is noted from the infection prevention notes the animal and question was monitored for 10 days and has no evidence of rabies. The patient consequently requires no further rabies vaccines and no further vaccine has been ordered. The wound cultures are polymicrobial as expected with the Pasteurella multocida, strep, and anaerobic bacteria all related to the animal bite and it's oral tawnya. There is no some improvement but appears a plan will be for the patient to rece clair another 24-48 hours intravenous antibiotic therapy until the swelling erythema and tenderness to the hand and foot have improved. He was then transitioned to oral antibiotic therapy. Home care has been requested given the stability concerns the patient's ability to provide his own care. Current Visit: Yes Status: Acute Code(s): L03.119 - CELLULITIS OF UNSPECIFIED PART OF LIMB; L02.519 - CUTANEOUS ABSCESS OF UNSPECIFIED HAND SNOMED Code(s): 036301294 (3) Dog bite of left hand Current Visit: Yes Status: Acute Code(s): S61.452A - OPEN BITE OF LEFT HAND, INITIAL ENCOUNTER; W54.0XXA - BITTEN BY DOG, INITIAL ENCOUNTER SNOMED Code(s): 515505370 (4) Essential (primary) hypertension Current Visit: Yes Status: Acute Code(s): I10 - ESSENTIAL (PRIMARY) HYPERTENSION SNOMED Code(s): 65004762 (5) Personal history of arterial aneurysm Current Visit: Yes Status: Acute Code(s): Z86.79 - PERSONAL HISTORY OF OTHER DISEASES OF THE CIRCULATORY SYSTEM SNOMED Code(s): 038582340
[2019-02-05] MEDS: LISINOPRIL 20 MG TAB PO SCH (08:28)
[2019-02-05] MEDS: FAMOTIDINE 20 MG TAB PO SCH (08:28)
[2019-02-05] MEDS: hydrALAZINE HCL 10 MG TAB PO SCH ×4 (08:28→20:24)
[2019-02-05] MEDS: amLODIPine 10 MG TAB PO SCH (08:28)
[2019-02-05] MEDS: NICOTINE 21MG/24HR PATCH TRANSDERM SCH (08:28)
[2019-02-05] MEDS: SODIUM CHLORIDE 0.9% 1,000 ML IV SCH ×2 (08:29→23:23)
[2019-02-05 08:45] LABS: Basophils % (A) 0 %; Eosinophils # (A) 0.1 k/uL (0-0.7); Eosinophils % (A) 2 %; HCT 42.5 % (39.0-53.0); HGB 14.8 gm/dL (13.0-17.5); Lymphocytes # (A) 1.7 k/uL (1.0-4.8); Lymphocytes % (A) 25 %; MCH 32.7 pg (25.0-35.0); MCHC 34.7 g/dL (31.0-37.0); MCV 94.1 fL (80.0-100.0); Mean Platelet Volume 6.3; Monocytes # (A) 0.3 k/uL (0-1.0); Monocytes % (A) 5 %; Neutrophils # (A) 4.5 k/uL (1.3-7.7); Neutrophils % (A) 66 %; Platelet Count 207 k/uL (150-450); RBC 4.51 m/uL (4.30-5.90); RDW 12.2 % (11.5-15.5); WBC 6.8 k/uL (3.8-10.6)
[2019-02-05 11:12] LABS: African American GFR (CKD) >90 (>60 ml/min/1.73 sqM); Anion Gap 8 mmol/L; Blood Urea Nitrogen 16 mg/dL (9-20); Calcium 11.1 mg/dL (8.4-10.2); Carbon Dioxide 24 mmol/L (22-30); Chloride 106 mmol/L (98-107); Glucose 95 mg/dL (74-99); Potassium 3.9 mmol/L (3.5-5.1); Sodium 138 mmol/L (137-145)
--- NOTE | 2019-02-05 12:37 | P.PN ---
Subjective This is a pleasant 53-year-old white male patient of my partner. He reports that 8 days ago, on January 22, his dog and his friend's dog began fighting and in breaking up he was bitten on the right foot and left hand. These puncture wounds since worsened with increased redness pain and swelling. He had not followed up at all and our office until his symptoms became severe enough that he came to the emergency room yesterday. He is status post 1 dose of Unasyn. Orthopedic surgery consult is pending. He denies any chest pains, pressures, shortness of breath, nausea or vomiting. He only complains of pain in his bite sites. 01/31/2019 maintained on IV antibiotics, adjusted. T-max 99.7. Complains of pain worsened on upper left affected extremity. Evaluated by orthopedic surgery, recommendations noted and appreciated. Blood pressure is uncontrolled. Potassium 3.2, creatinine 1.04. 02/01/2019 potassium 4.1. Mag 2.1 uncontrolled hypertension throughout the night and received an additional dose of hydralazine. wound cx cultures reporting strep agalactiae group b. Preliminary blood cultures negative. Maintained on Unasyn. Afebrile. Reports pain has lessened compared to yesterday. Hypertensive. 02/02/2019 scheduled to return to the OR today for further irrigation/debridement of new abscess left hand. Hypertensive, further adjustment of antihypertensives throughout the night. Complains of significant pain of the right hand, pain meds adjusted. Afebrile, normal WBC. IV antibiotics as per ID. 02/03/2019 status post I&D of left dorsal hand abscess, tolerated procedure well. Pain control improved. Blood pressure improving. Afebrile, normal WBC. Anaerobic cultures reporting gram-negative bacilli, wound cx agalactae B. good diet intake with no nausea vomiting or diarrhea. Denies chest pain, palpitations or shortness of breath. Denies lightheadedness dizziness or focal deficits. 02/04/2019 reporting pain control continues to improve, greater in hand. Cultures finalizing, maintained on Unasyn. Afebrile, normal WBC. Systolic blood pressures currently in the 160s. Drain is scheduled to be removed from left hand today. Denies chest pain, palpitations or shortness of breath. 02/05/2019: Patient remained stable. He remains on IV antibiotics of Unasyn. Infectious disease recommended 24-48 hours more of these. His pain is controlled. He denies any chest pains pressures or shortness of breath nausea or vomiting. Repeat cultures are pending Objective - Vital Signs Vital signs: Vital Signs Temp 98.9 F 02/05/19 12:18 Pulse 67 02/05/19 12:18 Resp 17 02/05/19 12:18 BP 189/98 02/05/19 12:18 Pulse Ox 96 02/05/19 12:18 Intake & Output 02/04/19 02/05/19 02/05/19 18:59 06:59 18:59 Intake Total 1710 Output Total 400 600 Balance -400 1110 Intake: Intake, IV Titration 700 Amount Ampicillin-Sulbactam 3 gm 100 In Sodium Chloride 0.9% 100 ml @ 200 mls/hr IVPB Q8H PETE Rx#:[id number] Sodium Chloride 0.9% 1, 600 000 ml @ 100 mls/hr IV . Q10H PETE Rx#:[id number] Oral 1010 Output: Urine 400 600 Other: Voiding Method Toilet Toilet Toilet Urinal Urinal Urinal # Voids 2 1 - Exam GENERAL: Alert and oriented 3, tired appearing, no acute distress NECK: Normal range of motion, supple without lymphadenopathy or JVD, no thyromegaly LUNGS: Breath sounds clear to auscultation bilaterally and equal. No wheezes rales or rhonchi. HEART: Regular rate and rhythm without murmurs, rubs or gallops.S1S2 Normal ABDOMEN: Soft, nontender, normoactive bowel sounds. No guarding, no rebound. No masses appreciated. EXTREMITIES/SKIN: left hand dressing/Gerald wrap clean dry and intact, and right foot dressing clean dry and intact. Moves digits freely of bilateral extremities. Positive radial and DP pulses. NEUROLOGICAL: Cranial nerves II through XII grossly intact. Moves all 4 extremities, strength and sensation grossly intact no focal deficits PSYCH: Normal mood, normal affect. - Labs CBC & Chem 7: 02/05/19 08:05 02/05/19 10:26 Labs: Abnormal Lab Results - Last 24 Hours (Table) 02/05/19 Range/Units 10: Calcium 11.1 H (8.4-10.2) mg/dL Microbiology - Last 24 Hours (Table) 02/02/19 17:00 Anaerobic Culture - Preliminary Hand - Left 01/29/19 19:45 Blood Culture - Final Blood No Growth after 144 hours 02/02/19 17:00 Gram Stain - Final Hand - Left Wound Culture - Final Microbiology 02/02/19 17:00 Hand - Left Anaerobic Culture - Preliminary 01/29/19 19:45 Blood Blood Culture - Final No Growth after 144 hours 02/02/19 17:00 Hand - Left Gram Stain - Final 02/02/19 17:00 Hand - Left Wound Culture - Final 01/30/19 16:23 Hand - Left Gram Stain - Final 01/30/19 16:23 Hand - Left Wound Culture - Final Strep agalactiae - (group b) Pasteurella multocida 01/30/19 16:23 Hand - Left Anaerobic Culture - Final Anaerobic Gm Negative Bacilli Anaerobic Gm Negative Bacilli#2 Anaerobic Gm Negative Bacilli#3 01/30/19 16:23 Foot - Right Anaerobic Culture - Final Anaerobic Gm Negative Bacilli Anaerobic Gm Negative Bacilli#2 Anaerobic Gm Negative Bacilli#3 01/30/19 16:23 Foot - Right Gram Stain - Final 01/30/19 16:23 Foot - Right Wound Culture - Final Strep agalactiae - (group b) Assessment and Plan (1) Dog bite of left hand Current Visit: Yes Status: Acute Code(s): S61.452A - OPEN BITE OF LEFT HAND, INITIAL ENCOUNTER; W54.0XXA - BITTEN BY DOG, INITIAL ENCOUNTER SNOMED Code(s): 556369466 (2) Cellulitis and abscess of foot Current Visit: Yes Status: Acute Code(s): L03.119 - CELLULITIS OF UNSPECIFIED PART OF LIMB; L02.619 - CUTANEOUS ABSCESS OF UNSPECIFIED FOOT SNOMED Code(s): 525978500 (3) Cellulitis and abscess of hand Current Visit: Yes Status: Acute Code(s): L03.119 - CELLULITIS OF UNSPECIFIED PART OF LIMB; L02.519 - CUTANEOUS ABSCESS OF UNSPECIFIED HAND SNOMED Code(s): 578428540 (4) Essential (primary) hypertension Current Visit: Yes Status: Acute Code(s): I10 - ESSENTIAL (PRIMARY) HYPERTENSION SNOMED Code(s): 70765044 (5) Personal history of arterial aneurysm Current Visit: Yes Status: Acute Code(s): Z86.79 - PERSONAL HISTORY OF OTHER DISEASES OF THE CIRCULATORY SYSTEM SNOMED Code(s): 258507204 (6) Dog bite of right foot Current Visit: Yes Status: Acute Code(s): S91.351A - OPEN BITE, RIGHT FOOT, INITIAL ENCOUNTER; W54.0XXA - BITTEN BY DOG, INITIAL ENCOUNTER SNOMED Code(s): 717004483 (7) Hypertension Current Visit: No Status: Acute Code(s): I10 - ESSENTIAL (PRIMARY) HYPERTENSION SNOMED Code(s): 89540662 Plan: Otoniel amlodipine and lisinopril for hypertension. Continue Unasyn for antibiotic coverage. Continue when necessary morphine for pain. Plan discharge tomorrow on Augmentin for 10 days per infectious disease.
[2019-02-05] MEDS: HYDROcodone/APAP 7.5-325MG 1 EACH TAB PO PRN (20:23)
[2019-02-05 20:59] VITALS: RESP 18
[2019-02-06] MEDS: AMPICILLIN-SULBACTAM 3 GM in SODIUM CHLORIDE 0.9% 100 ML IVPB SCH ×2 (04:08→12:14)
[2019-02-06] MEDS: HYDROcodone/APAP 7.5-325MG 1 EACH TAB PO PRN (07:54)
[2019-02-06] MEDS: LISINOPRIL 20 MG TAB PO SCH (07:55)
[2019-02-06] MEDS: FAMOTIDINE 20 MG TAB PO SCH (07:55)
[2019-02-06] MEDS: amLODIPine 10 MG TAB PO SCH (07:55)
[2019-02-06] MEDS: hydrALAZINE HCL 10 MG TAB PO SCH ×2 (07:56→12:13)
[2019-02-06] MEDS: NICOTINE 21MG/24HR PATCH TRANSDERM SCH (07:56)
[2019-02-06] MEDS: SODIUM CHLORIDE 0.9% 1,000 ML IV SCH ×2 (07:57→08:01)
--- NOTE | 2019-02-06 11:53 | P.DS ---
Providers Date of admission: 01/31/19 09:08 Expected date of discharge: 02/06/19 Attending physician: Alonzo Means Consults: 01/29/19 19:48 Consult Physician Stat Consulting Provider: Mitchell Topete Consult Reason/Comments: Hand injury and dogbite her right hand Do you want consulting provider notified?: Already Contacted 01/30/19 11:08 Consult Physician Stat Consulting Provider: Kenan Palomino Consult Reason/Comments: Dogbite left hand/right foot Do you want consulting provider notified?: Yes Primary care physician: Bowen Bueno - Discharge Diagnosis(es) (1) Dog bite of left hand Current Visit: Yes Status: Acute (2) Cellulitis and abscess of foot Current Visit: Yes Status: Acute (3) Cellulitis and abscess of hand Current Visit: Yes Status: Acute (4) Essential (primary) hypertension Current Visit: Yes Status: Acute (5) Personal history of arterial aneurysm Current Visit: Yes Status: Acute (6) Dog bite of right foot Current Visit: Yes Status: Acute (7) Hypertension Current Visit: No Status: Acute Hospital Course: This is a pleasant 53-year-old white male patient of my partner. He reports that 8 days ago, on Thursday, January 22, his dog and his friend's dog began fighting and in breaking up he was bitten on the right foot and left hand. These puncture wounds since worsened with increased redness pain and swelling. He had not followed up at all and our office until his symptoms became severe enough that he came to the emergency room yesterday. He is status post 1 dose of Unasyn. Orthopedic surgery consult is pending. He denies any chest pains, pressures, shortness of breath, nausea or vomiting. He only complains of pain in his bite sites. 01/31/2019 maintained on IV antibiotics, adjusted. T-max 99.7. Complains of pain worsened on upper left affected extremity. Evaluated by orthopedic surgery, recommendations noted and appreciated. Blood pressure is uncontrolled. Potassium 3.2, creatinine 1.04. 02/01/2019 potassium 4.1. Mag 2.1 uncontrolled hypertension throughout the night and received an additional dose of hydralazine. wound cx cultures reporting strep agalactiae group b. Preliminary blood cultures negative. Maintained on Unasyn. Afebrile. Reports pain has lessened compared to yesterday. Hypertensive. 02/02/2019 scheduled to return to the OR today for further irrigation/debridement of new abscess left hand. Hypertensive, further adjustment of antihypertensives throughout the night. Complains of significant pain of the right hand, pain meds adjusted. Afebrile, normal WBC. IV antibiotics as per ID. 02/03/2019 status post I&D of left dorsal hand abscess, tolerated procedure well. Pain control improved. Blood pressure improving. Afebrile, normal WBC. Anaerobic cultures reporting gram-negative bacilli, wound cx agalactae B. good diet intake with no nausea vomiting or diarrhea. Denies chest pain, palpitations or shortness of breath. Denies lightheadedness dizziness or focal deficits. 02/04/2019 reporting pain control continues to improve, greater in hand. Cultures finalizing, maintained on Unasyn. Afebrile, normal WBC. Systolic blood pressures currently in the 160s. Drain is scheduled to be removed from left hand today. Denies chest pain, palpitations or shortness of breath. 02/05/2019: Patient remained stable. He remains on IV antibiotics of Unasyn. Infectious disease recommended 24-48 hours more of these. His pain is controlled. He denies any chest pains pressures or shortness of breath nausea or vomiting. Repeat cultures are pending 02/06/2019: Patient is had 48 more hours of Unasyn. He'll be discharged home with Augmentin. He will have home care to help with dressing changes and follow-up in the office in the next several days. His hypertension is not well- controlled this time he will go home with medications as listed in the discharge summary. We will evaluate this in the office to improve his blood pressure control. Patient Condition at Discharge: Stable Plan - Discharge Summary Discharge Rx Participant: Yes New Discharge Prescriptions: New Amoxic-Pot Clav 875-125Mg [Augmentin 875-125] 1 tab PO Q12HR #20 tablet hydrALAZINE HCL [Apresoline] 10 mg PO TID #90 tab Nicotine 21Mg/24Hr Patch [Habitrol] 1 patch TRANSDERM DAILY 14 Days #14 patch amLODIPine [Norvasc] 10 mg PO DAILY #30 tab Acetaminophen Tab [Tylenol] 650 mg PO Q6HR PRN tab PRN Reason: Mild Pain Or Fever > 100.5 Lisinopril [Zestril] 20 mg PO DAILY #30 tab Continue Aspirin EC [Ecotrin Low Dose] 81 mg PO DAILY Discontinued Bp Med(Unknown) 1 tab PO TID Discharge Medication List Aspirin EC [Ecotrin Low Dose] 81 mg PO DAILY 05/20/16 [History] Amoxic-Pot Clav 875-125Mg [Augmentin 875-125] 1 tab PO Q12HR #20 tablet 02/01/19 [Rx] Acetaminophen Tab [Tylenol] 650 mg PO Q6HR PRN tab 02/06/19 [Rx] Lisinopril [Zestril] 20 mg PO DAILY #30 tab 02/06/19 [Rx] Nicotine 21Mg/24Hr Patch [Habitrol] 1 patch TRANSDERM DAILY 14 Days #14 patch 02/06/19 [Rx] amLODIPine [Norvasc] 10 mg PO DAILY #30 tab 02/06/19 [Rx] hydrALAZINE HCL [Apresoline] 10 mg PO TID #90 tab 02/06/19 [Rx] Follow up Appointment(s)/Referral(s): Bowen Bueno Jr, DO [Primary Care Provider] - 1-2 days Joshua Carrera PAC [PHYSICIAN CANAL BOAT OPERATOR] - 2 Weeks [facility] Visiting Nurse, [NON-STAFF] - Activity/Diet/Wound Care/Special Instructions: Patient will be admitted *Please leave prescriptions for any special dressing changes* ORTHOPEDIC DISCHARGE INSTRUCTIONS: 1. Daily dressing changes 2. Keep incisions covered while showering 3. Plan for follow up in 10-14 days for recheck Discharge Disposition: HOME SELF-CARE
[2019-02-06 12:05] VITALS: BP 149/75; PULSE 76; TEMP 98.9
== END 2019-02-06 13:20 | disposition home health service (06) | DRG 571 ==
LOC: EC 17:53 → 3NMEDONC 20:54 → OBSVTOIN 01-31 09:08
PROVIDERS: ADMIT Family Medicine; ATTEND Family Medicine
PROC: 0JBK0ZZ Excision of Left Hand Subcutaneous Tissue and Fascia, Open Approach (ICD-10-PCS; principal; 2019-01-31)
PROC: 0JBQ0ZZ Excision of Right Foot Subcutaneous Tissue and Fascia, Open Approach (ICD-10-PCS; principal; 2019-01-31)
PROC: 0JBK0ZZ Excision of Left Hand Subcutaneous Tissue and Fascia, Open Approach (ICD-10-PCS; 2019-02-02)
DX: S91.351A Open bite, right foot, initial encounter (principal); L03.114 Cellulitis of left upper limb; L03.115 Cellulitis of right lower limb; A28.0 Pasteurellosis; L02.512 Cutaneous abscess of left hand; L02.611 Cutaneous abscess of right foot; S61.452A Open bite of left hand, initial encounter; W54.0XXA Bitten by dog, initial encounter; B95.7 Other staphylococcus as the cause of diseases classified elsewhere; E78.5 Hyperlipidemia, unspecified; E87.6 Hypokalemia; F17.200 Nicotine dependence, unspecified, uncomplicated; I10 Essential (primary) hypertension; I87.2 Venous insufficiency (chronic) (peripheral); Z79.82 Long term (current) use of aspirin; Z83.3 Family history of diabetes mellitus; Z86.79 Personal history of other diseases of the circulatory system
CPT/HCPCS: 36415; 80048; 80053; 83735; 84132; 85025; 85027; 87040; 87070; 87075; 87205; 90375; 90471; 90472; 90675; 90715; 96361; 96365; 96372; 96375; 99284